=== PATIENT | female | born 1975 | race Two or more races ===

== ENCOUNTER → 2017-05-03 | Outpatient (CLI) | payer OTHER ==
[2017-05-03 09:25] LABS: ABSOLUTE BASOPHILS # (AUTO) 0.1 10^3/uL (0.0-0.2); ABSOLUTE EOSINOPHILS # (AUTO) 0.1 10^3/uL (0.0-0.6); ABSOLUTE LYMPHOCYTES (AUTO) 1.7 10^3/uL (0.5-4.7); ABSOLUTE MONOCYTES (AUTO) 0.4 10^3/uL (0.1-1.4); ABSOLUTE NEUT (AUTO) 3.6 10^3/uL (1.7-8.2); BASOPHILS % (AUTO) 0.9 % (0-2); EOSINOPHILS % (AUTO) 1.2 % (0-6); HEMATOCRIT 38.4 % (36.0-47.0); HEMOGLOBIN 13.3 g/dL (12.0-15.5); HGB HCT DIFFERENCE 1.5; LYMPHOCYTES % (AUTO) 29.6 % (13-45); MEAN CORPUSCULAR HEMOGLOBIN 31.7 pg (27.0-33.4); MEAN CORPUSCULAR HGB CONC 34.8 g/dL (32.0-36.0); MEAN CORPUSCULAR VOLUME 91 fl (80-97); MONOCYTES % (AUTO) 6.8 % (3-13); RED BLOOD COUNT 4.21 10^6/uL (3.72-5.28); RED CELL DISTRIBUTION WIDTH 12.8 % (11.5-14.0); SEGMENTED NEUTROPHILS % (AUTO) 61.5 % (42-78); WHITE BLOOD COUNT 5.9 10^3/uL (4.0-10.5)
[2017-05-03 09:42] LABS: ALANINE AMINOTRANSFERASE 28 U/L (9-52); ALBUMIN 4.3 g/dL (3.5-5.0); ALKALINE PHOSPHATASE 55 U/L (38-126); ANION GAP 13 (5-19); ASPARTATE AMINO TRANSFERASE 18 U/L (14-36); BILIRUBIN,DIRECT 0.3 mg/dL (0.0-0.4); BILIRUBIN,TOTAL 0.5 mg/dL (0.2-1.3); BLOOD UREA NITROGEN 7 mg/dL (7-20); CALCIUM 9.8 mg/dL (8.4-10.2); CARBON DIOXIDE 29 mmol/L (22-30); CHLORIDE 101 mmol/L (98-107); CHOLESTEROL 209.27 mg/dL (0-200); Direct HDL 59 mg/dL (>40); GLUCOSE 93 mg/dL (75-110); POTASSIUM 3.8 mmol/L (3.6-5.0); SODIUM 142.5 mmol/L (137-145); TOTAL PROTEIN 7.3 g/dL (6.3-8.2); TRIGLYCERIDES 155 mg/dL (<150)
[2017-05-03 09:53] LABS: DIRECT LDL 128 mg/dL (<100)
== END ==
LOC: CCC 08:51
DX: Z13.1 Encounter for screening for diabetes mellitus (principal); R20.2 Paresthesia of skin
CPT/HCPCS: 36415; 80053; 80061; 82306; 83036; 84443; 85025

== ENCOUNTER 2017-05-09 19:35 | Emergency (ER) | payer SELFPAY ==
[2017-05-09 20:02] VITALS: BP 132/99
[2017-05-09] MEDS ORDERED: CYCLOBENZAPRINE HCL 10 MG TABLET PO ONE (21:10)
[2017-05-09] MEDS ORDERED: LIDOCAINE 5% (700 MG) TRANSDERMAL ADH..PATCH TP ONE (21:10)
--- NOTE | 2017-05-09 21:12 | ER Document Report ---
HPI - HPI Patient complains to provider of: Left upper back tenderness Onset: This morning Onset/Duration: Gradual Quality of pain: Achy Pain Level: 4 Context: Patient states that she woke up today with left lateral neck pain and left upper back tenderness. Patient denies any injuries. Patient is right-hand dominant. 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 She denies any cough, cold symptoms, chest pain or difficulty breathing. Patient additionally states that she was seen recently and treated for a stye. Patient states that the eyelid swelling has started to improve and that she is continuing to use her antibiotics as prescribed Associated Symptoms: Other - Left upper back. denies: Fever, Headache Exacerbated by: Movement Relieved by: Denies Similar symptoms previously: No Recently seen / treated by doctor: Yes - ROS ROS below otherwise negative: Yes Systems Reviewed and Negative: Yes All other systems reviewed and negative - EENT EENT: REPORTS: Eye problems - CARDIOVASCULAR Cardiovascular: DENIES: Chest pain - REPRODUCTIVE Reproductive: DENIES: : - MUSCULOSKELETAL Musculoskeletal: REPORTS: Back Pain, Neck Pain - DERM Skin Color: Normal Skin Problems: None Past Medical History - General Information source: Patient - Social History Smoking Status: Never Smoker Frequency of alcohol use: None Drug Abuse: None Occupation: housekeeping Lives with: Family, Spouse/Significant other Family History: CAD - Dad, COPD - Mom, CVA - Dad, DM - Dad, Other - [place], dad at age 47 Patient has suicidal ideation: No Patient has homicidal ideation: No - Past Medical History Cardiac Medical History: Reports: Hx Hypertension Neurological Medical History: Reports: Hx Migraine Renal/ Medical History: Denies: Hx Peritoneal Dialysis Past Surgical History: Reports: Hx Cholecystectomy, Hx Gynecologic Surgery, Hx Orthopedic Surgery - BACK SURGERY, Hx Tubal Ligation - Immunizations Immunizations up to date: Yes Hx Diphtheria, Pertussis, Tetanus Vaccination: Yes Vertical Provider Document - CONSTITUTIONAL Agree With Documented VS: Yes Exam Limitations: No Limitations General Appearance: WD/WN, No Apparent Distress - INFECTION CONTROL TRAVEL OUTSIDE OF THE [place] IN LAST 30 DAYS: No - HEENT HEENT: Atraumatic, Normocephalic Notes: Resolving stye to lateral aspect of left upper eyelid - NECK Neck: Normal Inspection, Supple - RESPIRATORY Respiratory: Breath Sounds Normal, No Respiratory Distress O2 Sat by Pulse Oximetry: 98 - CARDIOVASCULAR Cardiovascular: Regular Rate, Regular Rhythm Pulses: Normal: Radial - BACK Back: Abnormal Inspection - Left trapezius muscle tenderness with spasm - MUSCULOSKELETAL/EXTREMETIES Musculoskeletal/Extremeties: FINESSE, FROM Notes: Normal strength and muscle tone to bilateral upper extremities - NEURO Level of Consciousness: Awake, Alert, Appropriate Motor/Sensory: No Motor Deficit, No Sensory Deficit - DERM Integumentary: Warm, Dry, No Rash Course - Vital Signs Vital signs: Temp Pulse Resp BP Pulse Ox 98.7 F 78 16 132/99 H 98 05/09/17 19:59 05/09/17 19:59 05/09/17 19:59 05/09/17 19:59 05/09/17 19:59 Discharge - Discharge Clinical Impression: Trapezius muscle spasm Stye Qualifiers: Laterality: left Eyelid: upper Qualified Code(s): H00.014 - Hordeolum externum left upper eyelid Condition: Stable Disposition: HOME, SELF-CARE Instructions: Muscle Relaxers ([facility]), Muscle Strain ([facility]), Sty ([facility]), Warm Packs ([facility]) Additional Instructions: Return immediately for any new or worsening symptoms Followup with your primary care provider, call tomorrow to make a followup appointment Prescriptions: Cyclobenzaprine HCl [Flexeril 10 Mg Tablet] 10 mg PO TID #15 tablet Forms: Return to Work Referrals: [facility] [Provider Group] - Follow up as needed [facility] [Provider Group] - Follow up as needed
== END 2017-05-09 21:31 | disposition home or self-care (01) ==
LOC: ER 19:35
DX: H00.014 Hordeolum externum left upper eyelid (principal); M62.838 Other muscle spasm; M54.6 Pain in thoracic spine; M54.2 Cervicalgia; I10 Essential (primary) hypertension; Z90.49 Acquired absence of other specified parts of digestive tract; Z98.51 Tubal ligation status
CPT/HCPCS: 99283

== ENCOUNTER 2017-05-24 11:21 | Emergency (ER) | payer SELFPAY ==
[2017-05-24] MEDS ORDERED: IBUPROFEN 600 MG TABLET PO ONE (12:28)
--- NOTE | 2017-05-24 13:19 | RADIOLOGY REPORT (SQ) ---
EXAM DESCRIPTION: CHEST PA/LAT COMPLETED DATE/TIME: 05/24/2017 1:08 pm REASON FOR STUDY: cough COMPARISON: 05/11/2017. EXAM PARAMETERS: NUMBER OF VIEWS: two views TECHNIQUE: Digital Frontal and Lateral radiographic views of the chest acquired. RADIATION DOSE: NA LIMITATIONS: none FINDINGS: LUNGS AND PLEURA: No opacities, masses or pneumothorax. No pleural effusion. MEDIASTINUM AND HILAR STRUCTURES: No masses or contour abnormalities. HEART AND VASCULAR STRUCTURES: Heart normal size. No evidence for failure. BONES: No acute findings. HARDWARE: Clips in the upper abdomen. OTHER: No other significant finding. IMPRESSION: NO SIGNIFICANT RADIOGRAPHIC FINDING IN THE CHEST. TECHNICAL DOCUMENTATION: JOB ID: [id number] [employer]- All Rights Reserved
[2017-05-24] MEDS ORDERED: BUTALB/ACETAMINOPHEN/CAFFEINE 1 TAB EACH PO ONE (14:14)
--- NOTE | 2017-05-24 14:19 | ER Document Report ---
ED General - General Chief Complaint: Sinus Pain Stated Complaint: HEADACHE Time Seen by Provider: 05/24/17 12:56 Notes: 41 yo female c/o sinus pressure and pain, headache, cough, sore throat x 1 week TRAVEL OUTSIDE OF THE [place]. IN LAST 30 DAYS: No - HPI Onset: Last week Onset/Duration: Gradual, Persistent Associated symptoms: Body/muscle aches, Nonproductive cough, Headache, Sore throat. denies: Fever, Nausea Exacerbated by: Other - leaning forward Relieved by: Denies - Related Data Allergies/Adverse Reactions: erythromycin base [Erythromycin Base] Allergy (Intermediate, Verified 05/24/17 11:23) Past Medical History - General Information source: Patient - Social History Smoking Status: Never Smoker Chew tobacco use (# tins/day): No Frequency of alcohol use: None Drug Abuse: None Family History: CAD - Dad, COPD - Mom, CVA - Dad, DM - Dad, Other - [place], dad at age 47 Patient has suicidal ideation: No Patient has homicidal ideation: No - Past Medical History Cardiac Medical History: Reports: Hx Hypertension Neurological Medical History: Reports: Hx Migraine Renal/ Medical History: Denies: Hx Peritoneal Dialysis Past Surgical History: Reports: Hx Cholecystectomy, Hx Gynecologic Surgery, Hx Orthopedic Surgery - BACK SURGERY, Hx Tubal Ligation - Immunizations Immunizations up to date: Yes Hx Diphtheria, Pertussis, Tetanus Vaccination: Yes Review of Systems - Review of Systems Constitutional: No symptoms reported EENT: See HPI Cardiovascular: No symptoms reported Respiratory: No symptoms reported Gastrointestinal: No symptoms reported Genitourinary: No symptoms reported Female Genitourinary: No symptoms reported Musculoskeletal: No symptoms reported Skin: No symptoms reported Hematologic/Lymphatic: No symptoms reported Neurological/Psychological: No symptoms reported Physical Exam - Vital signs Vitals: Temp Pulse Resp BP Pulse Ox 99.0 F 96 14 138/98 H 98 05/24/17 11:23 05/24/17 11:23 05/24/17 11:23 05/24/17 11:23 05/24/17 11:23 Interpretation: Normal - General General appearance: Appears well, Alert - HEENT Head: Normocephalic, Tenderness - + frontal and maxillary sinus tap tender Eyes: Normal Conjunctiva: Normal Pupils: PERRL Tympanic membrane: Normal Sinus: Tenderness Mucous membranes: Normal, Moist Pharynx: Erythema. No: Exudate Neck: Normal, Supple - Respiratory Respiratory status: No respiratory distress Chest status: Nontender Breath sounds: Normal Chest palpation: Normal - Cardiovascular Rhythm: Regular Heart sounds: Normal auscultation Murmur: No - Abdominal Inspection: Normal Distension: No distension Bowel sounds: Normal Tenderness: Nontender Organomegaly: No organomegaly - Back Back: Normal, Nontender - Extremities General upper extremity: Normal inspection, Nontender, Normal color, Normal ROM , Normal temperature General lower extremity: Normal inspection, Nontender, Normal color, Normal ROM , Normal temperature, Normal weight bearing. No: Brandyn's sign - Neurological Neuro grossly intact: Yes Cognition: Normal Orientation: AAOx4 Ka[place] Coma Scale Eye Opening: Spontaneous [place] Coma Scale Verbal: Oriented [place] Coma Scale Motor: Obeys Commands Kailee Coma Scale Total: 15 Speech: Normal Motor strength normal: LUE, RUE, LLE, RLE Sensory: Normal - Psychological Associated symptoms: Normal affect, Normal mood - Skin Skin Temperature: Warm Skin Moisture: Dry Skin Color: Normal Course - Re-evaluation Re-evalutation: 05/24/17 14:21 H&P c/w acute sinusitis. I estimate there is low risk for acute glaucome, temporal ateritis, meningitis, intracraial hemorhage or sroke. I conseder discharge home reasonable. I will treat with round of oral antibiotics. pt instructed to f/u with primary care if symptoms persist. pt agreeable with plan and stable for discharge - Vital Signs Vital signs: Temp Pulse Resp BP Pulse Ox 99.0 F 96 14 138/98 H 98 05/24/17 11:23 05/24/17 11:23 05/24/17 11:23 05/24/17 11:23 05/24/17 11:23 Discharge - Discharge Clinical Impression: Acute sinusitis Qualifiers: Sinusitis location: unspecified location Recurrence: non-recurrent Qualified Code(s): J01.90 - Acute sinusitis, unspecified Condition: Stable Disposition: HOME, SELF-CARE Instructions: Sinusitis ([facility]), Antibiotic Therapy ([facility]), Steroid Medication Additional Instructions: You have a sinus infection Please take antibiotics and steroids as prescribed I recommend Mucinex D in addition to prescribed meds push fluids follow up with primary care if symptoms persist or worsen Prescriptions: Amox Tr/Potassium Clavulanate [Augmentin 875-125 Tablet] 1 tab PO BID 10 Days tablet Prednisone [Deltasone 20 mg Tablet] 1 tab PO BID 5 Days #8 tablet Forms: Return to Work
[2017-05-24 14:41] VITALS: BP 125/89
== END 2017-05-24 14:40 | disposition home or self-care (01) ==
LOC: ER 11:21
DX: J01.90 Acute sinusitis, unspecified (principal); R51 Headache; R05 Cough; J02.9 Acute pharyngitis, unspecified
CPT/HCPCS: 99283; 87804; 71020; J3490

== ENCOUNTER 2017-06-09 11:44 | Emergency (ER) | payer SELFPAY ==
--- NOTE | 2017-06-09 13:12 | ER Document Report ---
ED Respiratory Problem - General Mode of Arrival: Ambulatory Information source: Patient TRAVEL OUTSIDE OF THE [place] IN LAST 30 DAYS: No - HPI Patient complains to provider of: Cough Onset: Other - 4 days ago Associated symptoms: Other - see notes above <CAROLYN SOLIS - Last Filed: 06/09/17 15:30> <KAL FENG - Last Filed: 06/09/17 20:55> - General Chief Complaint: Cough Stated Complaint: COUGH,RUNNY NOSE,SHOULDER PAIN Time Seen by Provider: 06/09/17 12:43 Notes: 42 year old female with history of hypertension presents to the ED complaining of a cough for the past 4 days which is worsened when laying down. Patient reports sinus congestion, and post-tussive emesis. Patient denies fever or chills. Patient was seen in early may for similar ocmplains and was given Augmentin and Prednisone which appeared to help. Patient reports that she finished her Prendnisone course, but did not finish her Augmentin course. (CAROLYN SOLIS) - Related Data Allergies/Adverse Reactions: erythromycin base [Erythromycin Base] Allergy (Intermediate, Verified 06/09/17 11:46) Home Medications: Current Home Medications Diltiazem HCl [Cardizem Cd 120 mg Capsule] 1 tab PO DAILY 06/09/17 [History] Past Medical History - General Information source: Patient - Social History Smoking Status: Never Smoker Frequency of alcohol use: None Drug Abuse: None Family History: CAD - Dad, COPD - Mom, CVA - Dad, DM - Dad, Other - [place], dad at age 47 Patient has suicidal ideation: No Patient has homicidal ideation: No - Past Medical History Cardiac Medical History: Reports: Hx Hypertension Neurological Medical History: Reports: Hx Migraine Renal/ Medical History: Denies: Hx Peritoneal Dialysis Past Surgical History: Reports: Hx Cholecystectomy, Hx Gynecologic Surgery - surgery for eptopic, Hx Orthopedic Surgery - BACK SURGERY, Hx Tubal Ligation - Immunizations Immunizations up to date: Yes Hx Diphtheria, Pertussis, Tetanus Vaccination: Yes <CAROLYN SOLIS - Last Filed: 06/09/17 15:30> Review of Systems - Review of Systems Constitutional: No symptoms reported. denies: Chills, Fever EENT: See HPI, Nose congestion Cardiovascular: No symptoms reported Respiratory: See HPI, Cough Gastrointestinal: No symptoms reported Genitourinary: No symptoms reported Female Genitourinary: No symptoms reported Musculoskeletal: No symptoms reported Skin: No symptoms reported Hematologic/Lymphatic: No symptoms reported Neurological/Psychological: No symptoms reported -: Yes All other systems reviewed and negative <SOLISCAROLYN - Last Filed: 06/09/17 15:30> Physical Exam - General General appearance: Alert In distress: None - HEENT Head: Normocephalic, Atraumatic Eyes: Normal Extraocular movements intact: Yes Pupils: PERRL - Respiratory Respiratory status: No respiratory distress Breath sounds: Normal - Cardiovascular Rhythm: Regular Heart sounds: Normal auscultation - Abdominal Inspection: Normal - Back Back: Normal - Extremities General upper extremity: Normal inspection, Normal ROM General lower extremity: Normal inspection, Normal ROM, Normal weight bearing - Neurological Neuro grossly intact: Yes Cognition: Normal Orientation: AAOx4 [place] Coma Scale Eye Opening: Spontaneous [place] Coma Scale Verbal: Oriented [place] Coma Scale Motor: Obeys Commands [place] Coma Scale Total: 15 Speech: Normal - Psychological Associated symptoms: Normal affect, Normal mood - Skin Skin Temperature: Warm Skin Moisture: Dry Skin Color: Normal <SOLISCAROLYN - Last Filed: 06/09/17 15:30> - Vital signs Vitals: Temp Pulse Resp BP Pulse Ox 98.7 F 96 17 149/115 H 97 06/09/17 11:50 06/09/17 11:50 06/09/17 11:50 06/09/17 11:50 06/09/17 11:50 Course - Diagnostic Test Radiology reviewed: Image reviewed, Reports reviewed <CAROLYN SOLIS - Last Filed: 06/09/17 15:30> - Diagnostic Test Radiology reviewed: Image reviewed <KAL FENG - Last Filed: 06/09/17 20:55> - Re-evaluation Re-evalutation: 06/09/17 15:27 Patient well-appearing with normal chest x-ray no acute abnormalities we will treat as bronchitis will provide albuterol azelastine and fluticasone with return precuations provided. (KAL FENG) - Vital Signs Vital signs: Temp Pulse Resp BP Pulse Ox 98.7 F 90 17 129/92 H 97 06/09/17 11:50 06/09/17 15:16 06/09/17 11:50 06/09/17 15:16 06/09/17 15:16 - Diagnostic Test Radiology results interpreted by me: 06/09/17 15:18 no acute findings on the x-ray (CAROLYN SOLIS) Discharge <CAROLYN SOLIS - Last Filed: 06/09/17 15:30> <KAL FENG - Last Filed: 06/09/17 20:55> - Discharge Clinical Impression: Bronchitis Condition: Stable Disposition: HOME, SELF-CARE Instructions: Bronchitis ([facility]) Additional Instructions: Follow up with primary care in approximately 1 week and return to the ED for new or worsening symptoms. Scribe Documentation - Scribe Written by Sepideh:: Sepideh Burnham, 06/09/2017 1504 acting as scribe for :: Oniel <CAROLYN SOLIS - Last Filed: 06/09/17 15:30>
--- NOTE | 2017-06-09 13:42 | RADIOLOGY REPORT (SQ) ---
EXAM DESCRIPTION: CHEST PA/LAT COMPLETED DATE/TIME: 06/09/2017 1:33 pm REASON FOR STUDY: cough/congestion COMPARISON: 05/24/2017 EXAM PARAMETERS: NUMBER OF VIEWS: two views TECHNIQUE: Digital Frontal and Lateral radiographic views of the chest acquired. RADIATION DOSE: NA LIMITATIONS: none FINDINGS: LUNGS AND PLEURA: No opacities, masses or pneumothorax. No pleural effusion. MEDIASTINUM AND HILAR STRUCTURES: No masses or contour abnormalities. HEART AND VASCULAR STRUCTURES: Heart normal size. No evidence for failure. BONES: No acute findings. HARDWARE: None in the chest. OTHER: No other significant finding. IMPRESSION: NO SIGNIFICANT RADIOGRAPHIC FINDING IN THE CHEST. TECHNICAL DOCUMENTATION: JOB ID: [id number] [employer]- All Rights Reserved
[2017-06-09 15:16] VITALS: BP 129/92
== END 2017-06-09 15:39 | disposition home or self-care (01) ==
LOC: ER 11:44
DX: J40 Bronchitis, not specified as acute or chronic (principal); I10 Essential (primary) hypertension; Z88.3 Allergy status to other anti-infective agents
CPT/HCPCS: 71020; 99283

== ENCOUNTER 2017-07-29 15:40 | Emergency (ER) | payer SELFPAY ==
[2017-07-29 15:50] VITALS: BP 138/90
[2017-07-29] MEDS ORDERED: KETOROLAC TROMETHAMINE 60 MG/2 ML SDV IM ONE (19:36)
--- NOTE | 2017-07-29 19:36 | ER Document Report ---
ED Respiratory Problem - General Chief Complaint: Cough Stated Complaint: HEADACHE Time Seen by Provider: 07/29/17 18:44 Mode of Arrival: Ambulatory Information source: Patient TRAVEL OUTSIDE OF THE [place] IN LAST 30 DAYS: No - HPI Patient complains to provider of: Cough Onset: Last week Notes: Patient arrives with complaints of cough for the last 6-7 days. She states that she coughed hard a few days ago and when she coughed hard she had a sudden pain in her left upper back. She continues to have that pain but only with deep breath or cough. She denies any shortness of breath. She denies any chest pain. She denies any fever. She had some sinus pressure, but states that this seems to have improved. She denies any nausea, vomiting, diarrhea. She denies any rashes. She denies any recent long trips or recent surgeries, leg pain or leg swelling, history of DVT or PE, cancer, hormones, smoking. She has no other complaints at this moment. She denies any past medical history aside from hypertension. - Related Data Allergies/Adverse Reactions: erythromycin base [Erythromycin Base] Allergy (Intermediate, Verified 06/09/17 11:46) Past Medical History - Social History Smoking Status: Unknown if Ever Smoked Family History: CAD - Dad, COPD - Mom, CVA - Dad, DM - Dad, Other - [place], dad at age 47 - Past Medical History Cardiac Medical History: Reports: Hx Hypertension Neurological Medical History: Reports: Hx Migraine Renal/ Medical History: Denies: Hx Peritoneal Dialysis Past Surgical History: Reports: Hx Cholecystectomy, Hx Gynecologic Surgery - surgery for eptopic, Hx Orthopedic Surgery - BACK SURGERY, Hx Tubal Ligation - Immunizations Immunizations up to date: Yes Hx Diphtheria, Pertussis, Tetanus Vaccination: Yes Review of Systems - Review of Systems -: Yes All other systems reviewed and negative Physical Exam - Vital signs Vitals: Temp Pulse Resp BP Pulse Ox 98.7 F 84 16 138/90 H 98 07/29/17 15:49 07/29/17 15:49 07/29/17 15:49 07/29/17 15:49 07/29/17 15:49 - Notes Notes: GENERAL: alert, cooperative, nontoxic, no distress. HEAD: normocephalic, atraumatic EYES: conjunctiva pink without discharge, no external redness or swelling. EARS: no external swelling, no external redness, no mastoid redness, swelling, tenderness. Ear canals are clear without swelling or drainage. TMs pearly ha , no redness, no bulging, normal landmarks, no perforation. NOSE: atraumatic, no external swelling. clear rhinorrhea noted. MOUTH/THROAT: mucous membranes moist and pink, posterior pharynx without erythema, swelling, exudate. No trismus or drooling. NECK: soft, supple, full range of motion, no meningismus. CHEST: no distress, lungs clear and equal throughout. No wheezing, rales, rhonchi. CARDIAC: regular rate and rhythm, no murmur, normal capillary refill, normal pulses. No peripheral edema noted. BACK: full range of motion, no CVA tenderness. EXTREMITIES: full range of motion of all extremities. No redness, no swelling. NEURO: alert and oriented -3, no focal deficits, full range of motion of all extremities. PYSCH: appropriate mood, affect. Patient is cooperative. SKIN: pink, warm, dry, no rash. Course - Re-evaluation Re-evalutation: 07/29/17 19:35 Patient is PERC rule negative for PE and PE is very unlikely in this patient. 07/29/17 20:17 Patient is nontoxic appearing with stable vitals. The patient had a cough for approximately a week and was coughing hard and since that time developed a sudden pain in her left upper back. Pain is only present with deep breaths or cough. No fevers. No dyspnea. No chest pain. She is a benign exam. Chest x- ray shows no acute abnormality. She is no PE risk factors and PERC rule is negative for PE. The patient likely strained muscles or has pleurisy. She will be discharged home with a prescription for Voltaren. Instructions to follow-up with her doctor if not better in 1 week, sooner for increased pain, fever, difficulty breathing or swallowing, or for any further concerns. The patient's emergency department workup and current diagnosis were explained to the patient and or family. Follow-up instructions were provided. Medications if prescribed were discussed. Instructions for when to return to the emergency department including specific worrisome symptoms were discussed with the patient and/or family. The patient is noted to have elevated blood pressure during today's emergency department visit. The patient was informed of this finding. The patient was instructed that this may be related to pre-hypertension and requires further evaluation with a primary care provider. The patient has no hypertensive symptoms at this time. - Vital Signs Vital signs: Temp Pulse Resp BP Pulse Ox 98.7 F 84 16 138/90 H 98 07/29/17 15:49 07/29/17 15:49 07/29/17 15:49 07/29/17 15:49 07/29/17 15:49 Discharge - Discharge Clinical Impression: Chest wall pain Upper respiratory infection Qualifiers: URI type: unspecified viral URI Qualified Code(s): J06.9 - Acute upper respiratory infection, unspecified Condition: Stable Disposition: HOME, SELF-CARE Instructions: Chest Wall Pain ([facility]), Upper Respiratory Illness ([facility]) Additional Instructions: Take medications as prescribed. Follow-up with your doctor if not better in 1 week, sooner for increased pain, fever, difficulty breathing, persistent vomiting, chest pain, or for any further concerns. Your blood pressure was elevated during today's visit. Have this rechecked with your doctor. Prescriptions: Diclofenac Sodium [Voltaren 50 Mg Tablet.] 50 mg PO BID #20 tablet.dr Forms: Elevated Blood Pressure, Smoking Cessation Education Referrals: [facility] [Provider Group] - Follow up as needed
--- NOTE | 2017-07-29 20:05 | RADIOLOGY REPORT (SQ) ---
EXAM DESCRIPTION: CHEST PA/LAT COMPLETED DATE/TIME: 07/29/2017 7:20 pm REASON FOR STUDY: cough COMPARISON: None. EXAM PARAMETERS: NUMBER OF VIEWS: two views TECHNIQUE: Digital Frontal and Lateral radiographic views of the chest acquired. RADIATION DOSE: NA LIMITATIONS: none FINDINGS: LUNGS AND PLEURA: No opacities, masses or pneumothorax. No pleural effusion. MEDIASTINUM AND HILAR STRUCTURES: No masses or contour abnormalities. HEART AND VASCULAR STRUCTURES: Heart normal size. No evidence for failure. BONES: No acute findings. HARDWARE: Cholecystectomy clips. OTHER: No other significant finding. IMPRESSION: NO SIGNIFICANT RADIOGRAPHIC FINDING IN THE CHEST. TECHNICAL DOCUMENTATION: JOB ID: [id number] [employer]- All Rights Reserved
== END 2017-07-29 20:29 | disposition home or self-care (01) ==
LOC: ER 15:40
DX: J06.9 Acute upper respiratory infection, unspecified (principal); R07.89 Other chest pain; R51 Headache; I10 Essential (primary) hypertension; Z88.3 Allergy status to other anti-infective agents; Z90.49 Acquired absence of other specified parts of digestive tract; Z98.51 Tubal ligation status
CPT/HCPCS: 99283; 96372; 71046; J1885

== ENCOUNTER 2017-08-22 09:43 | Emergency (ER) | payer SELFPAY ==
[2017-08-22] MEDS ORDERED: ASPIRIN 81 MG TABLET, CHEWABLE PO ONE (10:24)
--- NOTE | 2017-08-22 10:27 | ER Document Report ---
ED Medical Screen (RME) - General Chief Complaint: Chest Pain Stated Complaint: CHEST PAIN Time Seen by Provider: 08/22/17 10:19 Notes: RME DISCLOSURE I have seen this patient as part of a Rapid Medical Evaluation and, if applicable, placed any initially appropriate orders. The patient will be seen and fully evaluated, including a full history and physical exam, by a provider ( in Main ED or Fast Track) when a room becomes available. HPI 42-year-old female sent over from her primary care doctor's office for evaluation of the left sided chest pain radiating up to the left side of her neck with shortness of breath ongoing for the past 2 days. The pain is worse with breathing but not with exertion. She denies any falls or traumatic injuries to the chest. She has no prior history of blood clots. She does state that she was born with "kidney problems" but does not specifically know the name of this kidney issue. She denies any previous dialysis needs. EXAM Minimal left infraclavicular tenderness Clear to auscultation bilaterally Regular rate and rhythm TRAVEL OUTSIDE OF THE [place] IN LAST 30 DAYS: No - Related Data Allergies/Adverse Reactions: erythromycin base [Erythromycin Base] Allergy (Intermediate, Verified 08/22/17 09:44) Past Medical History - Social History Frequency of alcohol use: None Drug Abuse: None - Past Medical History Cardiac Medical History: Reports: Hx Hypertension Neurological Medical History: Reports: Hx Migraine Renal/ Medical History: Denies: Hx Peritoneal Dialysis Past Surgical History: Reports: Hx Cholecystectomy, Hx Gynecologic Surgery - surgery for eptopic, Hx Orthopedic Surgery - BACK SURGERY, Hx Tubal Ligation - Immunizations Immunizations up to date: Yes Hx Diphtheria, Pertussis, Tetanus Vaccination: Yes Physical Exam - Vital signs Vitals: Temp Pulse Resp BP Pulse Ox 98.6 F 80 16 128/90 H 98 08/22/17 09:55 08/22/17 09:55 08/22/17 09:55 08/22/17 09:55 08/22/17 09:55 Course - Vital Signs Vital signs: Temp Pulse Resp BP Pulse Ox 98.6 F 80 16 128/90 H 98 08/22/17 09:55 08/22/17 09:55 08/22/17 09:55 08/22/17 09:55 08/22/17 09:55
[2017-08-22] MEDS ORDERED: ASPIRIN 81 MG TABLET, CHEWABLE ONE (10:35)
[2017-08-22 10:49] LABS: ABSOLUTE EOSINOPHILS # (AUTO) 0.1 10^3/uL (0.0-0.6); ABSOLUTE LYMPHOCYTES (AUTO) 1.9 10^3/uL (0.5-4.7); ABSOLUTE MONOCYTES (AUTO) 0.6 10^3/uL (0.1-1.4); ABSOLUTE NEUT (AUTO) 6.5 10^3/uL (1.7-8.2); BASOPHILS % (AUTO) 0.5 % (0-2); EOSINOPHILS % (AUTO) 0.8 % (0-6); HEMATOCRIT 42.9 % (36.0-47.0); HEMOGLOBIN 14.5 g/dL (12.0-15.5); LYMPHOCYTES % (AUTO) 20.8 % (13-45); MEAN CORPUSCULAR HEMOGLOBIN 30.9 pg (27.0-33.4); MEAN CORPUSCULAR HGB CONC 33.7 g/dL (32.0-36.0); MEAN CORPUSCULAR VOLUME 92 fl (80-97); MONOCYTES % (AUTO) 6.9 % (3-13); PLATELET COUNT 308 10^3/uL (150-450); RED BLOOD COUNT 4.68 10^6/uL (3.72-5.28); RED CELL DISTRIBUTION WIDTH 13.5 % (11.5-14.0); TOTAL CELLS COUNTED % (AUTO) 100 %; WHITE BLOOD COUNT 9.2 10^3/uL (4.0-10.5)
--- NOTE | 2017-08-22 11:01 | RADIOLOGY REPORT (SQ) ---
EXAM DESCRIPTION: CHEST PA/LAT COMPLETED DATE/TIME: 08/22/2017 10:45 am REASON FOR STUDY: L sided CP SOB COMPARISON: 07/29/2017 NUMBER OF VIEWS: Two view. TECHNIQUE: Frontal and lateral radiographic views of the chest acquired. LIMITATIONS: None. FINDINGS: LUNGS AND PLEURA: No opacities, masses or pneumothorax. No pleural effusion. MEDIASTINUM AND HILAR STRUCTURES: No masses or contour abnormalities. HEART AND VASCULATURE: Heart normal size. No evidence for failure. BONY STRUCTURES: No acute findings. HARDWARE: None. OTHER: No other significant finding. IMPRESSION: NO SIGNIFICANT RADIOGRAPHIC FINDING IN THE CHEST. TECHNICAL DOCUMENTATION: JOB ID: [id number] [employer]- All Rights Reserved
[2017-08-22 11:10] LABS: ANION GAP 12 (5-19); BLOOD UREA NITROGEN 7 mg/dL (7-20); CALCIUM 10.4 mg/dL (8.4-10.2); CARBON DIOXIDE 29 mmol/L (22-30); CHLORIDE 100 mmol/L (98-107); GLUCOSE 101 mg/dL (75-110); POTASSIUM 3.8 mmol/L (3.6-5.0); SODIUM 140.7 mmol/L (137-145)
[2017-08-22] MEDS ORDERED: LIDOCAINE 5% (700 MG) TRANSDERMAL ADH..PATCH TP ONE (12:49)
[2017-08-22] MEDS ORDERED: DEXAMETHASONE 4 MG TABLET PO ONE (12:49)
--- NOTE | 2017-08-22 13:06 | ER Document Report ---
ED General - General Chief Complaint: Chest Pain Stated Complaint: CHEST PAIN Time Seen by Provider: 08/22/17 10:19 TRAVEL OUTSIDE OF THE [place]. IN LAST 30 DAYS: No - HPI Patient complains to provider of: Left upper chest pain Notes: Patient coming in for evaluation left upper chest pain. Patient localizes the pain around her left collarbone states because of the left side of her neck. Patient denies any fever chills nausea vomiting diarrhea denies any sinus symptoms or illnesses. Patient denies any recent trauma patient does work as cleaning staff. I was notified prior to the patient's arrival by PCP does sitting the patient over for further evaluation of the [facility] patient does have a history of left shoulder pain. States that the pain is not relieving Tylenol Motrin. Upon my evaluation patient resting comfortably. Denies any recent travel denies any shortness of breath. - Related Data Allergies/Adverse Reactions: erythromycin base [Erythromycin Base] Allergy (Intermediate, Verified 08/22/17 09:44) Past Medical History - Social History Smoking Status: Never Smoker Frequency of alcohol use: None Drug Abuse: None Family History: CAD - Dad, COPD - Mom, CVA - Dad, DM - Dad, Other - [place], dad at age 47 Patient has suicidal ideation: No Patient has homicidal ideation: No - Past Medical History Cardiac Medical History: Reports: Hx Hypertension Neurological Medical History: Reports: Hx Migraine Renal/ Medical History: Denies: Hx Peritoneal Dialysis Past Surgical History: Reports: Hx Cholecystectomy, Hx Gynecologic Surgery - surgery for eptopic, Hx Orthopedic Surgery - BACK SURGERY, Hx Tubal Ligation - Immunizations Immunizations up to date: Yes Hx Diphtheria, Pertussis, Tetanus Vaccination: Yes Review of Systems - Review of Systems Constitutional: No symptoms reported EENT: No symptoms reported Cardiovascular: Chest pain - Left upper chest Respiratory: No symptoms reported Gastrointestinal: No symptoms reported Genitourinary: No symptoms reported Female Genitourinary: No symptoms reported Musculoskeletal: No symptoms reported Skin: No symptoms reported Hematologic/Lymphatic: No symptoms reported Neurological/Psychological: No symptoms reported Physical Exam - Vital signs Vitals: Temp Pulse Resp BP Pulse Ox 98.6 F 80 16 128/90 H 98 08/22/17 09:55 08/22/17 09:55 08/22/17 09:55 08/22/17 09:55 08/22/17 09:55 Interpretation: Normal - General General appearance: Appears well, Alert - HEENT Head: Normocephalic, Atraumatic Eyes: Normal Conjunctiva: Normal Cornea: Normal Eyelashes: Normal Pupils: PERRL Ears: Normal External canal: Normal Sinus: Normal Nasal: Normal Mouth/Lips: Normal Neck: Normal - Respiratory Respiratory status: No respiratory distress Chest status: Nontender Breath sounds: Normal Chest palpation: Normal - Cardiovascular Rhythm: Regular Heart sounds: Normal auscultation Murmur: No - Abdominal Inspection: Normal Distension: No distension Bowel sounds: Normal Tenderness: Nontender Organomegaly: No organomegaly - Back Back: Normal, Nontender - Extremities General upper extremity: Normal inspection, Nontender, Normal color, Normal ROM , Normal temperature General lower extremity: Normal inspection, Nontender, Normal color, Normal ROM , Normal temperature, Normal weight bearing. No: Brandyn's sign - Neurological Neuro grossly intact: Yes Cognition: Normal Orientation: AAOx4 [place] Coma Scale Eye Opening: Spontaneous [place] Coma Scale Verbal: Oriented [place] Coma Scale Motor: Obeys Commands [place] Coma Scale Total: 15 Speech: Normal Motor strength normal: LUE, RUE, LLE, RLE Sensory: Normal - Psychological Associated symptoms: Normal affect, Normal mood - Skin Skin Temperature: Warm Skin Moisture: Dry Skin Color: Normal Course - Re-evaluation Re-evalutation: 08/23/17 13:33 The patient has atypical chest pain as the patient's chest pain is not suggestive of pulmonary embolus, cardiac ischemia, aortic dissection, or other serious etiology. Given the extremely low risk of these diagnoses further testing and evaluation for these possibilities does not appear to be indicated at this time. The patient has been instructed to return if the symptoms worsen or change in any way. - Vital Signs Vital signs: Temp Pulse Resp BP Pulse Ox 98.3 F 82 16 126/72 H 99 08/22/17 13:14 08/22/17 13:14 08/22/17 13:14 08/22/17 13:14 08/22/17 13:14 - Laboratory Result Diagrams: 08/22/17 10:30 08/22/17 10:30 Laboratory results interpreted by me: 08/22/17 10:30 Calcium 10.4 H Discharge - Discharge Clinical Impression: Left upper chest wall pain Disposition: HOME, SELF-CARE Instructions: Chest Wall Pain ([facility]), Chest Pain of Unclear Cause ([facility]) Additional Instructions: Your laboratory studies not show any indication that your pain is due to a cardiac cause her chest x-ray also does not show any indication that your pain is due to an infectious cause or pulmonary cause. I do believe that this is more muscle skeletal. I recommend taking Tylenol Motrin for pain she may take Ultram for severe pain. sHe may also apply ice and heat to the area. Return to ER symptoms worsen follow-up with your primary care physician in 3-5 days. Prescriptions: Tramadol HCl [Ultram 50 mg Tablet] 50 mg PO ASDIR PRN #14 tablet PRN Reason: Forms: Return to Work
[2017-08-22 13:15] VITALS: BP 126/72
--- NOTE | 2017-08-23 09:32 | EKG REPORT ---
SEVERITY:- NORMAL ECG - SINUS RHYTHM : Confirmed by: Mateo Francois 23-Aug-2017 09:31:33
== END 2017-08-22 13:10 | disposition home or self-care (01) ==
LOC: ER 09:43
DX: R07.89 Other chest pain (principal); Z88.1 Allergy status to other antibiotic agents; Z82.49 Family history of ischemic heart disease and other diseases of the circulatory system; I10 Essential (primary) hypertension
CPT/HCPCS: 36415; 71046; 80048; 84484; 85025; 93005; 93010; 99285

== ENCOUNTER → 2017-08-29 | Outpatient (CLI) | payer OTHER ==
--- NOTE | 2017-08-29 10:23 | WOMENS IMAGING REPORT ---
EXAM DESCRIPTION: BILAT SCREENING MAMMO W/CAD COMPLETED DATE/TIME: 08/29/2017 9:48 am REASON FOR STUDY: ROUTINE SCREENING; Z12.31 Z12.31 ENCNTR SCREEN MAMMOGRAM FOR MALIGNANT NEOPLASM O F DEISI COMPARISON: 11/18/2015 TECHNIQUE: Standard craniocaudal and mediolateral oblique views of each breast recorded using The Echo System[employer] l acquisition. LIMITATIONS: None. FINDINGS: No masses, calcifications or architectural distortion. No areas of suspicion. Read with the assistance of CAD. .[facility] - R2 Cenova Version 1.3 .[facility] - R2 Cenova Version 1.3 .[facility] - R2 Cenova Version 2.4 .[facility] - R2 Cenova Version 2.4 .[facility] - R2 Anthropologist Physical Version 9.2 IMPRESSION: NORMAL MAMMOGRAM. BIRADS 1. BREAST DENSITY: b. There are scattered areas of fibroglandular density. BIRAD: 1 NEGATIVE RECOMMENDATION: ROUTINE SCREENING COMMENT: The patient has been notified of the results by letter per SA requirements. Additional no tification policies are in place for contacting patient with suspicious or incomplete findings. Quality ID #225: The [employer] recommends an annual screening mammogram for women aged 40 years or over. This facility utilizes a reminder system to ensure that all patients receive reminder letters, and/or direct phone calls for appointments. This includes reminders for routine scr eening mammograms, diagnostic mammograms, or other Breast Imaging Interventions when appropriate. Th is patient will be placed in the appropriate reminder system. The [employer] (ACR) has developed recommendations for screening MRI of the breast s in certain patient populations, to be used in conjunction with mammography. Breast MRI surveillanc e may be appropriate for women with more than 20% lifetime risk of developing breast cancer as deter mined by genetic testing, significant family history of the disease, or history of mantle radiation f or Hodgkins Disease. ACR Practice Guidelines 2008. TECHNICAL DOCUMENTATION: FINDING NUMBER: (1) ASSESSMENT: (1) JOB ID: [id number] [employer]- All Rights Reserved
== END ==
LOC: WI 09:25
DX: Z12.31 Encounter for screening mammogram for malignant neoplasm of breast (principal)
CPT/HCPCS: 77067

== ENCOUNTER 2017-12-30 07:58 | Emergency (ER) | payer SELFPAY ==
[2017-12-30] MEDS ORDERED: LIDOCAINE 2% VISCOUS SOLN 20 ML UDCUP PO ONE (09:02)
[2017-12-30] MEDS ORDERED: DIPHENHYDRAMINE HCL 25 MG/10 ML UDC PO ONE (09:02)
[2017-12-30] MEDS ORDERED: MAG HYDROX/AL HYDROX/SIMETH SUSP 30 ML UDCUP PO ONE (09:02)
[2017-12-30 09:03] LABS: ABSOLUTE BASOPHILS # (AUTO) 0.1 10^3/uL (0.0-0.2); ABSOLUTE EOSINOPHILS # (AUTO) 0.1 10^3/uL (0.0-0.6); ABSOLUTE LYMPHOCYTES (AUTO) 1.8 10^3/uL (0.5-4.7); ABSOLUTE MONOCYTES (AUTO) 0.5 10^3/uL (0.1-1.4); ABSOLUTE NEUT (AUTO) 6.7 10^3/uL (1.7-8.2); BASOPHILS % (AUTO) 0.8 % (0-2); HEMATOCRIT 41.5 % (36.0-47.0); HEMOGLOBIN 14.5 g/dL (12.0-15.5); LYMPHOCYTES % (AUTO) 19.3 % (13-45); MEAN CORPUSCULAR HEMOGLOBIN 31.7 pg (27.0-33.4); MEAN CORPUSCULAR VOLUME 90 fl (80-97); PLATELET COUNT 324 10^3/uL (150-450); RED BLOOD COUNT 4.59 10^6/uL (3.72-5.28); RED CELL DISTRIBUTION WIDTH 13.1 % (11.5-14.0); SEGMENTED NEUTROPHILS % (AUTO) 72.9 % (42-78); TOTAL CELLS COUNTED % (AUTO) 100 %; WHITE BLOOD COUNT 9.1 10^3/uL (4.0-10.5)
--- NOTE | 2017-12-30 09:04 | ER Document Report ---
ED GI/ - General Chief Complaint: Abdominal Pain Stated Complaint: STOMACH PAIN Time Seen by Provider: 12/30/17 08:29 Mode of Arrival: Ambulatory Information source: Patient Notes: Patient is a 42-year-old female who presents to the ER today for epigastric burning pain since 2 days ago after dinner. Patient states that she is taking some Tums which did not help but has not tried anything else for her symptoms. Patient denies any nausea, vomiting, diarrhea, abdominal pain that radiates anywhere else, fevers or chills. She has no history of gastritis or ulcers that she knows of. TRAVEL OUTSIDE OF THE [place] IN LAST 30 DAYS: No - Related Data Allergies/Adverse Reactions: erythromycin base [Erythromycin Base] Allergy (Intermediate, Verified 12/30/17 07:59) Past Medical History - General Information source: Patient - Social History Smoking Status: Never Smoker Family History: CAD - Dad, COPD - Mom, CVA - Dad, DM - Dad, Other - [place], dad at age 47 - Past Medical History Cardiac Medical History: Reports: Hx Hypertension Neurological Medical History: Reports: Hx Migraine Renal/ Medical History: Denies: Hx Peritoneal Dialysis Past Surgical History: Reports: Hx Cholecystectomy, Hx Gynecologic Surgery - surgery for eptopic, Hx Orthopedic Surgery - BACK SURGERY, Hx Tubal Ligation - Immunizations Immunizations up to date: Yes Hx Diphtheria, Pertussis, Tetanus Vaccination: Yes Review of Systems - Review of Systems Constitutional: No symptoms reported EENT: No symptoms reported Cardiovascular: No symptoms reported Respiratory: No symptoms reported Gastrointestinal: See HPI Genitourinary: No symptoms reported Female Genitourinary: No symptoms reported Musculoskeletal: No symptoms reported Skin: No symptoms reported Hematologic/Lymphatic: No symptoms reported Neurological/Psychological: No symptoms reported Physical Exam - Vital signs Vitals: Temp Pulse Resp BP Pulse Ox 98.3 F 77 16 124/92 H 98 12/30/17 08:01 12/30/17 08:01 12/30/17 08:01 12/30/17 08:01 12/30/17 08:01 - Notes Notes: PHYSICAL EXAMINATION: GENERAL: Well-appearing and in no acute distress. HEAD: Atraumatic, normocephalic. EYES: Pupils equal round and reactive to light, extraocular movements intact, sclera anicteric, conjunctiva are normal. ENT: ear canals without erythema or foreign body, TMs pearly medina with good bony landmarks, nares patent, oropharynx clear without exudates. Moist mucous membranes. NECK: Normal range of motion, supple without lymphadenopathy LUNGS: CTAB and equal. No wheezes rales or rhonchi. HEART: Regular rate and rhythm without murmurs ABDOMEN: Soft,Mild epigastric tenderness. No guarding, no rebound BACK: no vertebral tenderness, normal ROM GI/: no CVA tenderness EXTREMITIES: Normal range of motion, no pitting edema. No cyanosis. NEUROLOGICAL: Cranial nerves grossly intact. Normal sensory/motor exams. PSYCH: Normal mood, normal affect. SKIN: Warm, Dry, normal turgor, no rashes or lesions noted Course - Re-evaluation Re-evalutation: 12/30/17 17:52 Lab work is all unremarkable today except for mildly elevated lipase at 700. Patient had complete relief of symptoms with GI cocktail. I will send her home with Carafate and Prilosec and have her follow-up with her primary care provider. Her vital signs are all within normal limits. - Vital Signs Vital signs: Temp Pulse Resp BP Pulse Ox 98.5 F 70 18 133/79 H 100 12/30/17 10:50 12/30/17 10:50 12/30/17 10:50 12/30/17 10:50 12/30/17 10:50 - Laboratory Result Diagrams: 12/30/17 08:46 12/30/17 08:46 Laboratory results interpreted by me: 12/30/17 12/30/17 08:46 08:46 Lipase 704.4 H Urine Blood MODERATE H Discharge - Discharge Clinical Impression: Epigastric pain Condition: Stable Disposition: HOME, SELF-CARE Additional Instructions: Return immediately for any new or worsening symptoms. Follow up with primary care provider, call tomorrow to make followup appointment. Prescriptions: Omeprazole Magnesium [Prilosec Otc] 20 mg PO BID #40 tablet. Sucralfate [Carafate 1 gm Tablet] 1 gm PO ACHS #30 tablet Forms: Return to Work Referrals: [facility] [Primary Care Provider] - Follow up as needed
[2017-12-30 09:08] LABS: APPEARANCE,URINE SLIGHTLY-CLOUDY; BILIRUBIN,URINE NEGATIVE (NEGATIVE); COLOR,URINE YELLOW; GLUCOSE, URINE NEGATIVE (NEGATIVE); KETONES,URINE NEGATIVE (NEGATIVE); LEUKOCYTE ESTERASE,URINE NEGATIVE (NEGATIVE); NITRITE,URINE NEGATIVE (NEGATIVE); PROTEIN,URINE NEGATIVE (NEGATIVE); UROBILINOGEN,URINE NEGATIVE mg/dL (<2.0)
[2017-12-30 09:15] LABS: ALANINE AMINOTRANSFERASE 21 U/L (9-52); ALBUMIN 4.4 g/dL (3.5-5.0); ALKALINE PHOSPHATASE 57 U/L (38-126); ANION GAP 10 (5-19); ASPARTATE AMINO TRANSFERASE 17 U/L (14-36); BILIRUBIN,DIRECT 0.3 mg/dL (0.0-0.4); BILIRUBIN,TOTAL 0.4 mg/dL (0.2-1.3); BLOOD UREA NITROGEN 9 mg/dL (7-20); CALCIUM 9.8 mg/dL (8.4-10.2); CARBON DIOXIDE 30 mmol/L (22-30); CHLORIDE 103 mmol/L (98-107); GLUCOSE 98 mg/dL (75-110); LIPASE 704.4 U/L (23-300); POTASSIUM 3.8 mmol/L (3.6-5.0); SODIUM 142.9 mmol/L (137-145); TOTAL PROTEIN 7.6 g/dL (6.3-8.2)
[2017-12-30 10:57] VITALS: BP 133/79
== END 2017-12-30 10:50 | disposition home or self-care (01) ==
LOC: ER 07:58
DX: R10.13 Epigastric pain (principal); I10 Essential (primary) hypertension; Z88.3 Allergy status to other anti-infective agents; Z90.49 Acquired absence of other specified parts of digestive tract
CPT/HCPCS: 99284; 36415; 83690; 85025; 81025; 80053; 81001; J3490 ×2

== ENCOUNTER 2018-02-08 08:25 | Emergency (ER) | payer SELFPAY ==
[2018-02-08] MEDS ORDERED: ASPIRIN 325 MG TABLET PO ONE (09:22)
--- NOTE | 2018-02-08 09:23 | ER Document Report ---
ED Medical Screen (RME) - General Chief Complaint: Chest Pain Stated Complaint: CHEST PAIN Time Seen by Provider: 02/08/18 09:21 Mode of Arrival: Ambulatory Information source: Patient TRAVEL OUTSIDE OF THE [place] IN LAST 30 DAYS: No - HPI Patient complains to provider of: cp Onset: Yesterday - pt with h/o HTN with c/o sscp starting last pm and continuing into today - Related Data Allergies/Adverse Reactions: erythromycin base [Erythromycin Base] Allergy (Intermediate, Verified 02/08/18 08:26) Past Medical History - Social History Frequency of alcohol use: None Drug Abuse: None - Past Medical History Cardiac Medical History: Reports: Hx Hypertension Neurological Medical History: Reports: Hx Migraine Renal/ Medical History: Denies: Hx Peritoneal Dialysis Past Surgical History: Reports: Hx Cholecystectomy, Hx Gynecologic Surgery - surgery for eptopic, Hx Orthopedic Surgery - BACK SURGERY, Hx Tubal Ligation - Immunizations Immunizations up to date: Yes Hx Diphtheria, Pertussis, Tetanus Vaccination: Yes Physical Exam - Vital signs Vitals: Temp Pulse Resp BP Pulse Ox 98.4 F 80 16 118/78 95 02/08/18 08:30 02/08/18 08:30 02/08/18 08:30 02/08/18 08:30 02/08/18 08:30 Course - Vital Signs Vital signs: Temp Pulse Resp BP Pulse Ox 98.4 F 80 16 118/78 95 02/08/18 08:30 02/08/18 08:30 02/08/18 08:30 02/08/18 08:30 02/08/18 08:30 Doctor's Discharge - Discharge Referrals: [facility] [Primary Care Provider] - Follow up as needed
--- NOTE | 2018-02-08 09:57 | ER Document Report ---
ED Cardiac - General Chief Complaint: Chest Pain Stated Complaint: CHEST PAIN Time Seen by Provider: 02/08/18 09:21 Mode of Arrival: Ambulatory TRAVEL OUTSIDE OF THE [place] IN LAST 30 DAYS: No - HPI Patient complains to provider of: Other - Intermittent chest discomfort since yesterday which she has had in the past never a cardiac etiology. Use of: denies: Alcohol, Amphetamines, Bath salts, Caffeine, Cocaine, Decongestants, Other Was the onset of pain: Unknown Is the pain a: New problem Chest pain location: Pleuritic Quality of pain: Intermittent Chest pain radiation location: None - This 42-year-old female presents for evaluation of intermittent chest pain which began yesterday on occasion which she associates worse after coughing. She has had a runny nose of late and on occasion has had cough is resolved she said she thinks she is having chest pain. She is concerned however and decided to come the emergency room to make sure nothing else was happening. She notes that it is intermittent, it is not associated with nausea diaphoresis exertion or anything else. She denies any diarrhea abdominal pain emesis lightheadedness constipation or change in her symptoms. - Related Data Allergies/Adverse Reactions: erythromycin base [Erythromycin Base] Allergy (Intermediate, Verified 02/08/18 08:26) Past Medical History - General Information source: Patient - Social History Smoking Status: Never Smoker Frequency of alcohol use: None Drug Abuse: None Family History: CAD - Dad, COPD - Mom, CVA - Dad, DM - Dad, Other - [place], dad at age 47 Patient has suicidal ideation: No Patient has homicidal ideation: No - Medical History Medical History: Other - High blood pressure - Past Medical History Cardiac Medical History: Reports: Hx Hypertension Neurological Medical History: Reports: Hx Migraine Renal/ Medical History: Denies: Hx Peritoneal Dialysis Past Surgical History: Reports: Hx Cholecystectomy, Hx Gynecologic Surgery - surgery for eptopic, Hx Orthopedic Surgery - BACK SURGERY, Hx Tubal Ligation - Immunizations Immunizations up to date: Yes Hx Diphtheria, Pertussis, Tetanus Vaccination: Yes Review of Systems - Review of Systems Cardiovascular: See HPI -: Yes All other systems reviewed and negative Physical Exam - Vital signs Vitals: Temp Pulse Resp BP Pulse Ox 98.4 F 80 16 118/78 95 02/08/18 08:30 02/08/18 08:30 02/08/18 08:30 02/08/18 08:30 02/08/18 08:30 - General General appearance: Appears well In distress: None - HEENT Head: Normocephalic Eyes: Normal Conjunctiva: Normal - Respiratory Respiratory status: No respiratory distress Chest status: Nontender Breath sounds: Normal Chest palpation: Normal - Cardiovascular Rhythm: Regular Heart sounds: Normal auscultation Murmur: No Friction rub: No Alan's crunch: No - Abdominal Inspection: Normal Distension: No distension Tenderness: Nontender - Back Back: Normal - Extremities General upper extremity: Normal inspection - Neurological Neuro grossly intact: Yes - Skin Skin Temperature: Warm Skin Moisture: Dry Skin Color: Normal Course - Re-evaluation Re-evalutation: 02/08/18 09:55 This 42-year-old female who presents for evaluation of chest pain Her heart score is 0 for age, 0 for EKG, 2 for risk factors, 0 for history and troponin is pending. This patient has a current URI with some episodes of sneezing coughing, this may be a contributing factor to the discomfort she is felt, her history is unlikely to represent cardiac etiology however will obtain 2 sets of cardiac enzymes. We will keep on monitor emergency department and reassess. Currently she is low risk per the heart score and she is not having any active pain at this time. 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 02/08/18 15:35 - Vital Signs Vital signs: Temp Pulse Resp BP Pulse Ox 98.2 F 80 14 112/69 96 02/08/18 14:01 02/08/18 08:30 02/08/18 14:01 02/08/18 14:01 02/08/18 14:01 - Laboratory Result Diagrams: 02/08/18 09:27 02/08/18 09:27 - Diagnostic Test Radiology reviewed: Image reviewed - No focal opacities no obvious infiltrates no pulmonary congestion - EKG Interpretation by [facility] EKG shows normal: Sinus rhythm - Normal sinus rhythm, 76 bpm, normal axis, no appreciable ST segment changes Unchanged from EKG 08-22-2017 Discharge - Discharge Condition: Stable Disposition: HOME, SELF-CARE Additional Instructions: You were seen today in the emergency room for your chest pain. You had an evaluation including blood tests and x-ray of your chest. You were observed no damage to your heart was measured during this time. It is unclear what is causing your chest pain at this time, call your doctor today for a follow-up appointment. Return for any worsening chest pain shortness of breath lightheadedness dizziness or fevers and chills. Prescriptions: Benzonatate [Tessalon Perle 100 mg Capsule] 100 mg PO Q8HP PRN #40 cap PRN Reason: Forms: Return to Work
--- NOTE | 2018-02-08 09:59 | RADIOLOGY REPORT (SQ) ---
EXAM DESCRIPTION: CHEST 2 VIEWS COMPLETED DATE/TIME: 02/08/2018 9:51 am REASON FOR STUDY: cp COMPARISON: Chest films 08/22/2017, 07/29/2017, 06/09/2017 EXAM PARAMETERS: NUMBER OF VIEWS: two views TECHNIQUE: Digital Frontal and Lateral radiographic views of the chest acquired. RADIATION DOSE: NA LIMITATIONS: none FINDINGS: LUNGS AND PLEURA: No opacities, masses or pneumothorax. No pleural effusion. MEDIASTINUM AND HILAR STRUCTURES: No masses or contour abnormalities. HEART AND VASCULAR STRUCTURES: Heart normal size. No evidence for failure. BONES: No acute findings. HARDWARE: Clips right upper quadrant post cholecystectomy OTHER: No other significant finding. IMPRESSION: NO ACUTE RADIOGRAPHIC FINDING IN THE CHEST. TECHNICAL DOCUMENTATION: JOB ID: [id number] [employer]- All Rights Reserved Reading location - IP/workstation name: [email or web address]
[2018-02-08 10:07] LABS: ABSOLUTE EOSINOPHILS # (AUTO) 0.1 10^3/uL (0.0-0.6); ABSOLUTE LYMPHOCYTES (AUTO) 1.7 10^3/uL (0.5-4.7); ABSOLUTE MONOCYTES (AUTO) 0.4 10^3/uL (0.1-1.4); ABSOLUTE NEUT (AUTO) 3.6 10^3/uL (1.7-8.2); BASOPHILS % (AUTO) 0.8 % (0-2); EOSINOPHILS % (AUTO) 1.5 % (0-6); HEMATOCRIT 41.1 % (36.0-47.0); LYMPHOCYTES % (AUTO) 29.2 % (13-45); MEAN CORPUSCULAR VOLUME 91 fl (80-97); MONOCYTES % (AUTO) 6.3 % (3-13); PLATELET COUNT 324 10^3/uL (150-450); RED BLOOD COUNT 4.51 10^6/uL (3.72-5.28); RED CELL DISTRIBUTION WIDTH 13.4 % (11.5-14.0); SEGMENTED NEUTROPHILS % (AUTO) 62.2 % (42-78); TOTAL CELLS COUNTED % (AUTO) 100 %; WHITE BLOOD COUNT 5.7 10^3/uL (4.0-10.5)
[2018-02-08 10:15] LABS: ALANINE AMINOTRANSFERASE 23 U/L (9-52); ALBUMIN 4.3 g/dL (3.5-5.0); ALKALINE PHOSPHATASE 51 U/L (38-126); ANION GAP 12 (5-19); ASPARTATE AMINO TRANSFERASE 18 U/L (14-36); BILIRUBIN,DIRECT 0.2 mg/dL (0.0-0.4); BILIRUBIN,TOTAL 0.6 mg/dL (0.2-1.3); BLOOD UREA NITROGEN 11 mg/dL (7-20); CALCIUM 9.5 mg/dL (8.4-10.2); CARBON DIOXIDE 24 mmol/L (22-30); CHLORIDE 106 mmol/L (98-107); CREATINE KINASE 79 U/L (30-135); GLUCOSE 94 mg/dL (75-110); POTASSIUM 4.2 mmol/L (3.6-5.0); SODIUM 141.5 mmol/L (137-145); TOTAL PROTEIN 7.5 g/dL (6.3-8.2)
[2018-02-08 10:27] LABS: CREATINE KINASE MB 0.54 ng/mL (<4.55)
[2018-02-08 10:28] LABS: TROPONIN I < 0.012 ng/mL
[2018-02-08 14:14] VITALS: BP 112/69
--- NOTE | 2018-02-08 22:34 | EKG REPORT ---
SEVERITY:- NORMAL ECG - SINUS RHYTHM : Confirmed by: Mateo Francois 08-Feb-2018 22:34:25
== END 2018-02-08 14:26 | disposition home or self-care (01) ==
LOC: ER 08:25
DX: R07.9 Chest pain, unspecified (principal); R05 Cough; J06.9 Acute upper respiratory infection, unspecified; R06.7 Sneezing; I10 Essential (primary) hypertension; Z88.1 Allergy status to other antibiotic agents; Z82.49 Family history of ischemic heart disease and other diseases of the circulatory system
CPT/HCPCS: 36415; 71046; 80053; 82550; 82553; 84484; 85025; 93005; 93010; 99285

== ENCOUNTER 2018-05-02 14:07 | Emergency (ER) | payer SELFPAY ==
[2018-05-02] MEDS ORDERED: DICYCLOMINE HCL 20 MG TABLET PO ONE (14:54)
[2018-05-02 15:22] LABS: ABSOLUTE BASOPHILS # (AUTO) 0.1 10^3/uL (0.0-0.2); ABSOLUTE LYMPHOCYTES (AUTO) 1.7 10^3/uL (0.5-4.7); ABSOLUTE MONOCYTES (AUTO) 0.7 10^3/uL (0.1-1.4); ABSOLUTE NEUT (AUTO) 5.4 10^3/uL (1.7-8.2); BASOPHILS % (AUTO) 0.6 % (0-2); EOSINOPHILS % (AUTO) 0.6 % (0-6); HEMATOCRIT 40.4 % (36.0-47.0); LYMPHOCYTES % (AUTO) 21.6 % (13-45); MEAN CORPUSCULAR HEMOGLOBIN 31.8 pg (27.0-33.4); MEAN CORPUSCULAR HGB CONC 34.8 g/dL (32.0-36.0); MEAN CORPUSCULAR VOLUME 92 fl (80-97); MONOCYTES % (AUTO) 8.4 % (3-13); PLATELET COUNT 315 10^3/uL (150-450); RED BLOOD COUNT 4.41 10^6/uL (3.72-5.28); RED CELL DISTRIBUTION WIDTH 13.5 % (11.5-14.0); SEGMENTED NEUTROPHILS % (AUTO) 68.8 % (42-78); TOTAL CELLS COUNTED % (AUTO) 100 %; WHITE BLOOD COUNT 7.9 10^3/uL (4.0-10.5)
[2018-05-02 15:23] LABS: APPEARANCE,URINE CLOUDY; BILIRUBIN,URINE NEGATIVE (NEGATIVE); COLOR,URINE YELLOW; GLUCOSE, URINE NEGATIVE (NEGATIVE); KETONES,URINE NEGATIVE (NEGATIVE); LEUKOCYTE ESTERASE,URINE LARGE (NEGATIVE); NITRITE,URINE NEGATIVE (NEGATIVE); PROTEIN,URINE NEGATIVE (NEGATIVE); URINE SPECIFIC GRAVITY 1.017; UROBILINOGEN,URINE NEGATIVE mg/dL (<2.0)
[2018-05-02 15:39] LABS: ALANINE AMINOTRANSFERASE 12 U/L (9-52); ALBUMIN 4.4 g/dL (3.5-5.0); ALKALINE PHOSPHATASE 59 U/L (38-126); ANION GAP 14 (5-19); ASPARTATE AMINO TRANSFERASE 17 U/L (14-36); BILIRUBIN,DIRECT 0.1 mg/dL (0.0-0.4); BILIRUBIN,TOTAL 0.4 mg/dL (0.2-1.3); BLOOD UREA NITROGEN 9 mg/dL (7-20); CALCIUM 9.7 mg/dL (8.4-10.2); CARBON DIOXIDE 27 mmol/L (22-30); CHLORIDE 100 mmol/L (98-107); GLUCOSE 98 mg/dL (75-110); LIPASE 133.6 U/L (23-300); POTASSIUM 3.8 mmol/L (3.6-5.0); SODIUM 140.5 mmol/L (137-145); TOTAL PROTEIN 7.5 g/dL (6.3-8.2)
--- NOTE | 2018-05-02 15:54 | RADIOLOGY REPORT (SQ) ---
EXAM DESCRIPTION: ACUTE ABDOMEN SERIES COMPLETED DATE/TIME: 05/02/2018 3:33 pm REASON FOR STUDY: abd pain COMPARISON: Two-view chest 02/08/2018 NUMBER OF VIEWS: Three views. TECHNIQUE: Frontal chest, supine abdomen and upright abdomen radiographic images acquired. LIMITATIONS: None. FINDINGS: CHEST: Lungs clear of infiltrates. Cardiac silhouette size, tahir, bony structures unremar kable. FREE AIR: None. No abnormal gas collections. BOWEL GAS PATTERN: Nonobstructive pattern. No dilated loops or air fluid levels. Moderate stool thro ughout the colon CALCIFICATIONS: No suspicious calcifications. HARDWARE: Clips right upper quadrant post cholecystectomy. Disc space prostheses post fusion at L4-5 SOFT TISSUES: No gross mass or suggestion of organomegaly. BONES: No acute fracture. No worrisome bone lesions. OTHER: No other significant finding. IMPRESSION: NO RADIOGRAPHIC EVIDENCE FOR ACUTE ABDOMINAL DISEASE. TECHNICAL DOCUMENTATION: JOB ID: [id number] [employer]- All Rights Reserved Reading location - IP/workstation name: [email or web address]
[2018-05-02] MEDS ORDERED: NITROFURANTOIN MONOHYD/M-CRYST 100 MG CAPSULE PO ONE (16:03)
--- NOTE | 2018-05-02 16:11 | ER Document Report ---
ED General - General Chief Complaint: Abdominal Pain Stated Complaint: ABDOMINAL PAIN,PAINFUL URINATION Time Seen by Provider: 05/02/18 14:50 TRAVEL OUTSIDE OF THE [place] IN LAST 30 DAYS: No - HPI Patient complains to provider of: Lower abdominal pain dysuria Notes: Patient coming in for lower abdominal pain dysuria ongoing for approximate 3 days. Patient states symptoms worsen therefore came to the ER. Patient states dysuria along with bloating patient states feels like she is full of gas and he is to pass flatulence. Patient otherwise denies any fevers or chills denies any recent antibiotics. Patient states most of her pain left lower quadrant and suprapubic region. - Related Data Allergies/Adverse Reactions: erythromycin base [Erythromycin Base] Allergy (Intermediate, Verified 05/02/18 14:09) Past Medical History - Social History Smoking Status: Never Smoker Chew tobacco use (# tins/day): No Frequency of alcohol use: None Drug Abuse: None Family History: CAD - Dad, COPD - Mom, CVA - Dad, DM - Dad, Other - [place], dad at age 47 Patient has suicidal ideation: No Patient has homicidal ideation: No - Past Medical History Cardiac Medical History: Reports: Hx Hypertension Neurological Medical History: Reports: Hx Migraine Renal/ Medical History: Denies: Hx Peritoneal Dialysis Past Surgical History: Reports: Hx Cholecystectomy, Hx Gynecologic Surgery - surgery for eptopic, Hx Orthopedic Surgery - BACK SURGERY, Hx Tubal Ligation - Immunizations Immunizations up to date: Yes Hx Diphtheria, Pertussis, Tetanus Vaccination: Yes Review of Systems - Review of Systems Constitutional: No symptoms reported EENT: No symptoms reported Cardiovascular: No symptoms reported Respiratory: No symptoms reported Gastrointestinal: Abdominal pain Genitourinary: Dysuria Female Genitourinary: No symptoms reported Musculoskeletal: No symptoms reported Skin: No symptoms reported Hematologic/Lymphatic: No symptoms reported Neurological/Psychological: No symptoms reported -: Yes All other systems reviewed and negative Physical Exam - Vital signs Vitals: Temp Pulse Resp BP Pulse Ox 98.5 F 79 16 136/90 H 100 05/02/18 14:11 05/02/18 14:11 05/02/18 14:11 05/02/18 14:11 05/02/18 14:11 Interpretation: Normal - General General appearance: Appears well, Alert - HEENT Head: Normocephalic, Atraumatic Eyes: Normal Pupils: PERRL - Respiratory Respiratory status: No respiratory distress Chest status: Nontender Breath sounds: Normal Chest palpation: Normal - Cardiovascular Rhythm: Regular Heart sounds: Normal auscultation Murmur: No - Abdominal Inspection: Normal Distension: No distension Bowel sounds: Normal Tenderness: Nontender Organomegaly: No organomegaly - Back Back: Normal, Nontender - Extremities General upper extremity: Normal inspection, Nontender, Normal color, Normal ROM , Normal temperature General lower extremity: Normal inspection, Nontender, Normal color, Normal ROM , Normal temperature, Normal weight bearing. No: Brandyn's sign - Neurological Neuro grossly intact: Yes Cognition: Normal Orientation: AAOx4 Kailee Coma Scale Eye Opening: Spontaneous [place] Coma Scale Verbal: Oriented [place] Coma Scale Motor: Obeys Commands Kailee Coma Scale Total: 15 Speech: Normal Motor strength normal: LUE, RUE, LLE, RLE Sensory: Normal - Psychological Associated symptoms: Normal affect, Normal mood - Skin Skin Temperature: Warm Skin Moisture: Dry Skin Color: Normal Course - Re-evaluation Re-evalutation: 05/02/18 20:57 The patient presents with abdominal pain without signs of peritonitis or other life-threatening or serious etiology. The patient appears stable for discharge and has been instructed to return immediately if the symptoms worsen in any way , or in 8-12hr if not improved for re-evaluation. The patient has been instructed to return if the symptoms worsen or change in any way. Urinalysis consistent with a UTI. Possible etiology for the patient's symptoms will start on antibiotics urine culture sent patient discharged home. - Vital Signs Vital signs: Temp Pulse Resp BP Pulse Ox 98.7 F 72 18 144/98 H 100 05/02/18 16:26 05/02/18 16:26 05/02/18 16:26 05/02/18 16:26 05/02/18 16:26 - Laboratory Result Diagrams: 05/02/18 15:03 05/02/18 15:03 Laboratory results interpreted by me: 05/02/18 15:03 Urine Blood SMALL H Ur Leukocyte Esterase LARGE H Urine Ascorbic Acid 40 H Discharge - Discharge Clinical Impression: Abdominal pain Qualifiers: Abdominal location: unspecified location Qualified Code(s): R10.9 - Unspecified abdominal pain Urinary tract infection Qualifiers: Urinary tract infection type: site unspecified Hematuria presence: without hematuria Qualified Code(s): N39.0 - Urinary tract infection, site not specified Condition: Good Disposition: HOME, SELF-CARE Instructions: Abdominal Pain ([facility]), Nitrofurantoin ([facility]), Urinary Tract Infection ([facility]) Additional Instructions: Your laboratory results and x-ray did not show any significant pathology except for urinary tract infection. We will start you on antibiotic called Macrobid. Would recommend taking Tylenol Motrin for pain control please follow-up with your primary care physician for further evaluation. Please take antibiotics until they are completed. He may also take the Zofran as prescribed for any nausea that she may have. Prescriptions: Ibuprofen [Motrin 600 mg Tablet] 600 mg PO Q8HP PRN #21 tablet PRN Reason: Nitrofurantoin/Nitrofuran Mac [Macrobid 100 mg Capsule] 1 tab PO BID #20 capsule Ondansetron [Zofran Odt] 4 mg PO Q6 PRN #30 tab.rapdis PRN Reason: For Nausea/Vomiting Forms: Return to Work Referrals: [facility] [Primary Care Provider] - Follow up as needed
[2018-05-02 16:28] VITALS: BP 144/98
== END 2018-05-02 16:31 | disposition home or self-care (01) ==
LOC: ER 14:07
DX: N39.0 Urinary tract infection, site not specified (principal); R10.9 Unspecified abdominal pain; R30.9 Painful micturition, unspecified; R10.32 Left lower quadrant pain; I10 Essential (primary) hypertension; R30.0 Dysuria
CPT/HCPCS: 99284; 36415; 87086; 83690; 85025; 87088; 80053; 81001; 87186; 74022; J3490; J8499

== ENCOUNTER → 2018-05-11 | Outpatient (CLI) | payer OTHER ==
--- NOTE | 2018-05-11 11:29 | RADIOLOGY REPORT (SQ) ---
EXAM DESCRIPTION: CERV SP 6 OR MORE COMPLETED DATE/TIME: 05/11/2018 11:10 am REASON FOR STUDY: CERVICALGIA Z00.00 ENCNTR FOR GENERAL ADULT MEDICAL EXAM W/O ABNORMAL FI M54.2 C ERVICALGIA COMPARISON: None. NUMBER OF VIEWS: Seven views. TECHNIQUE: AP, lateral, obliques, flexion, extension, and odontoid radiographic images acquired of t he cervical spine. LIMITATIONS: None. FINDINGS: MINERALIZATION: Normal. ALIGNMENT: Anatomic. FLEXION/EXTENSION: No instability. VERTEBRAE: Vertebral bodies of normal height. DISCS: Posterior osteophytes at C5-C6. Disc height maintained. FORAMINA: No osteophytes or foraminal narrowing. LATERAL AND POSTERIOR ELEMENTS: Facets, lateral masses, and spinous processes without significant fin dings. HARDWARE: None in the spine. SOFT TISSUES: No masses or calcifications. Lung apices clear. OTHER: No other significant finding. IMPRESSION: DEGENERATIVE CHANGES AT C5-C6. NO INSTABILITY ON FLEXION/EXTENSION. TECHNICAL DOCUMENTATION: JOB ID: [id number] [employer]- All Rights Reserved Reading location - IP/workstation name: [email or web address]
[2018-05-11 12:27] LABS: CHOLESTEROL 228.91 mg/dL (0-200); TRIGLYCERIDES 243 mg/dL (<150)
[2018-05-11 12:39] LABS: DIRECT LDL 137 mg/dL (<100)
[2018-05-11 12:44] LABS: VLDL CHOLESTEROL 48.6 mg/dL (10-31)
== END ==
LOC: RAD 10:45
DX: Z00.00 Encounter for general adult medical examination without abnormal findings (principal); M54.2 Cervicalgia; M47.892 Other spondylosis, cervical region
CPT/HCPCS: 36415; 72052; 80061; 83036; 84443

== ENCOUNTER 2018-11-14 14:11 | Emergency (ER) | payer SELFPAY ==
[2018-11-14] MEDS ORDERED: TETRACAINE HCL 0.5% OPH SOLN 4 ML OS ONE (15:54)
--- NOTE | 2018-11-14 16:02 | ER Document Report ---
ED Eye Complaint - General Chief Complaint: Drainage from Eye Stated Complaint: LEFT EYE PAIN, REDNESS,DRAINAGE Time Seen by Provider: 11/14/18 15:47 Primary Care Provider: MEGAN BASILIO DO [ACTIVE STAFF] - Follow up tomorrow Mode of Arrival: Ambulatory Information source: Patient Notes: Patient states she was walking yesterday afternoon and had a sudden onset of pain behind her left eye. Patient states that she does not wear contact lenses or glasses. Patient denies any trauma or foreign body to the eye. Patient states that today she noticed her eye was red. Patient complains of pain with movement of her eye and has had tearing to the left eye. TRAVEL OUTSIDE OF THE [place] IN LAST 30 DAYS: No - HPI Onset: Yesterday Eye location: Left Quality of pain: Achy Pain Level: 2 Contact lenses worn: No Associated symptoms: Pain, Redness - Related Data Allergies/Adverse Reactions: erythromycin base [Erythromycin Base] Allergy (Intermediate, Verified 11/14/18 14:12) Past Medical History - General Information source: Patient - Social History Smoking Status: Never Smoker Frequency of alcohol use: None Drug Abuse: None Occupation: None Family History: CAD - Dad, COPD - Mom, CVA - Dad, DM - Dad, Other - [place], dad at age 47 Patient has suicidal ideation: No Patient has homicidal ideation: No - Past Medical History Cardiac Medical History: Reports: Hx Hypertension Neurological Medical History: Reports: Hx Migraine Renal/ Medical History: Denies: Hx Peritoneal Dialysis Past Surgical History: Reports: Hx Cholecystectomy, Hx Gynecologic Surgery - surgery for eptopic, Hx Orthopedic Surgery - BACK SURGERY, Hx Tubal Ligation - Immunizations Immunizations up to date: Yes Hx Diphtheria, Pertussis, Tetanus Vaccination: Yes Review of Systems - Review of Systems Constitutional: No symptoms reported. denies: Fever EENT: Eye pain, Tearing. denies: Blurred vision, Double vision Cardiovascular: No symptoms reported. denies: Dizziness Respiratory: No symptoms reported. denies: Cough Gastrointestinal: No symptoms reported. denies: Nausea, Vomiting Genitourinary: No symptoms reported Female Genitourinary: No symptoms reported Musculoskeletal: No symptoms reported. denies: Neck pain Skin: No symptoms reported Hematologic/Lymphatic: No symptoms reported Neurological/Psychological: No symptoms reported. denies: Headaches Physical Exam - Vital signs Vitals: Temp Pulse Resp BP Pulse Ox 98.3 F 78 18 133/89 H 100 11/14/18 14:30 11/14/18 14:30 11/14/18 14:30 11/14/18 14:30 11/14/18 14:30 - General General appearance: Appears well, Alert In distress: None - HEENT Head: Normocephalic, Atraumatic Eyes: Tears - left eye. No: Pale conjunctiva, Periorbital ecchymosis, Periorbital edema Conjunctiva: Injected. No: Purulent discharge Extraocular movements intact: Yes Eyelashes: Normal Pupils: PERRL Nasal: Normal Mouth/Lips: Other - Respiratory Respiratory status: No respiratory distress Chest status: Nontender - Cardiovascular Rhythm: Regular Heart sounds: S1 appreciated, S2 appreciated - Extremities General upper extremity: Normal inspection General lower extremity: Normal inspection - Neurological Neuro grossly intact: Yes Cognition: Normal Kailee Coma Scale Eye Opening: Spontaneous [place] Coma Scale Verbal: Oriented [place] Coma Scale Motor: Obeys Commands [place] Coma Scale Total: 15 - Psychological Associated symptoms: Normal affect, Normal mood - Skin Skin Temperature: Warm Skin Moisture: Dry Skin Color: Normal Course - Re-evaluation Re-evalutation: 11/14/18 16:[address] Llamas, Dr. Llamas to bedside for examination. Agrees with plan for consultation with ophthalmology. Recommends speaking with radiology f or imaging recommendations. Consulted with radiologist who states that CTA with makah of Rose is not a sensitive test for small vessel retinal problems. He advises CT imaging with contrast if I am concerned about CVA or TIA, otherwise would recommend just a noncontrast CT if imaging is desired. 11/14/18 16:50 Consulted with door to door selling distributor, Dr. Basilio, regarding patient presentation and exam findings. Recommends giving patient Acular 4 times daily and having patient use artificial tears in between dosing of the Acular. Advises having patient call their office at 8 AM tomorrow morning to get an appointment to be seen tomorrow for further evaluation. Does not recommend any diagnostic imaging at this time and states that if they determine its necessary they can order this test tomorrow. - Vital Signs Vital signs: Temp Pulse Resp BP Pulse Ox 97.7 F 74 14 126/86 H 98 11/14/18 17:07 11/14/18 17:07 11/14/18 17:07 11/14/18 17:07 11/14/18 17:07 Discharge - Discharge Clinical Impression: Left eye pain Condition: Stable Disposition: HOME, SELF-CARE Instructions: Ketorolac Tromethamine Eye Drops ([facility]), Eyedrop Use ([facility]) Additional Instructions: Return immediately for any new or worsening symptoms Followup with the door to door selling distributor tomorrow morning. Call their office at 8 AM and let them know that Dr. Arnold, would like you to be seen in the office tomorrow. They will give you an appointment time to be seen. Use [id number] artificial tears in between dosing of the ketorolac prescription eyedrops. Prescriptions: Ketorolac Tromethamine [Acular] 1 drop OS QID #5 ml Referrals: MEGAN BASILIO DO [ACTIVE STAFF] - Follow up tomorrow
[2018-11-14 17:09] VITALS: BP 126/86
== END 2018-11-14 17:07 | disposition home or self-care (01) ==
LOC: ER 14:11
DX: H57.12 Ocular pain, left eye (principal); I10 Essential (primary) hypertension; Z88.1 Allergy status to other antibiotic agents
CPT/HCPCS: 99282; J3490

== ENCOUNTER → 2018-12-05 | Outpatient (CLI) | payer SELFPAY ==
[2018-12-05 10:21] LABS: CHOLESTEROL 236.39 mg/dL (0-200); TRIGLYCERIDES 143 mg/dL (<150)
[2018-12-05 10:32] LABS: DIRECT LDL 145 mg/dL (<100)
== END ==
LOC: CCC 09:51
DX: E78.49 Other hyperlipidemia (principal)
CPT/HCPCS: 36415; 80061

== ENCOUNTER 2019-11-28 19:43 | Emergency (ER) | payer MEDICAID, OTHER ==
--- NOTE | 2019-11-28 20:11 | ER Document Report ---
ED General - General Chief Complaint: Abdominal Pain Stated Complaint: LOWER RIGHT ABDOMINAL PAIN Time Seen by Provider: 11/28/19 20:08 Primary Care Provider: [facility],LUIS DANIEL [NO LOCAL MD] - Follow up as needed Mode of Arrival: Ambulatory Information source: Patient Notes: triage note 11/28/19 20:09 44-year-old female presents to the emergency room for complaints of intermittent, right lower quadrant abdominal pain for the last week that has become progressively worse today. pain is 3/5. Patient reports worse with walking, better at rest. No fevers or chills, no nausea vomiting or diarrhea. No [id number] medications have been tried. Patient has had an ectopic, cholecystectomy and tubal ligation in the past. Able to eat and drink without any issues. Last menstrual cycle was 2 weeks ago. my notes 44 year old [place] descent female who was walking with her 18-year-old son at the mall today and her right flank became quite severe causing her to stumble and nearly fall. Pain radiates to her right inguinal area. Her right inguinal pain has been continuous now for 1 week but increasingly progressively worse. Patient reports her father at age 47 from diabetes and heart attack in his sleep. He was status post CABG. Her mother is 66 and smoked cigarettes 1 pack/day since she was 10 years old and has COPD. The patient reports she has hypertension and takes lisinopril HCTZ and diltiazem on a daily basis. She has a history of sciatica but this pain feels different from her usual sciatica. She denies any history of ovarian cyst or appendicitis. She denies any diarrhea constipation nausea vomiting cough or cold symptoms fever chills skin rash or trauma or abuse or dysuria or hematuria. She denies any history of kidney stones or ovarian cysts. TRAVEL OUTSIDE OF THE [place] IN LAST 30 DAYS: No - Related Data Allergies/Adverse Reactions: erythromycin base [Erythromycin Base] Allergy (Intermediate, Verified 11/14/18 14:12) Past Medical History - General Information source: Patient - Social History Smoking Status: Unknown if Ever Smoked Cigarette use (# per day): No Chew tobacco use (# tins/day): No Smoking Education Provided: No Frequency of alcohol use: None Drug Abuse: None Lives with: Family Family History: CAD - Dad, COPD - Mom, CVA - Dad, DM - Dad, Other - [place], dad at age 47 Patient has suicidal ideation: No Patient has homicidal ideation: No - Past Medical History Cardiac Medical History: Reports: Hx Hypertension Neurological Medical History: Reports: Hx Migraine Renal/ Medical History: Denies: Hx Peritoneal Dialysis Past Surgical History: Reports: Hx Cholecystectomy, Hx Gynecologic Surgery - surgery for eptopic, Hx Orthopedic Surgery - BACK SURGERY, Hx Tubal Ligation - Immunizations Immunizations up to date: Yes Hx Diphtheria, Pertussis, Tetanus Vaccination: Yes Review of Systems - Review of Systems Constitutional: No symptoms reported EENT: No symptoms reported Cardiovascular: No symptoms reported Respiratory: No symptoms reported Gastrointestinal: See HPI, Abdominal pain Genitourinary: No symptoms reported Female Genitourinary: No symptoms reported Musculoskeletal: No symptoms reported Skin: No symptoms reported Hematologic/Lymphatic: No symptoms reported Neurological/Psychological: No symptoms reported Physical Exam - Vital signs Vitals: Temp Pulse Resp BP Pulse Ox 98.5 F 77 16 138/98 H 97 11/28/19 19:47 11/28/19 19:47 11/28/19 19:47 11/28/19 19:47 11/28/19 19:47 Interpretation: Hypertensive - General General appearance: Alert - HEENT Head: Normocephalic, Atraumatic Eyes: Normal Pupils: PERRL Sinus: Normal Nasal: Normal Mouth/Lips: Normal Mucous membranes: Normal Pharynx: Normal - Respiratory Respiratory status: No respiratory distress Chest status: Nontender Breath sounds: Normal Chest palpation: Normal - Cardiovascular Rhythm: Regular Heart sounds: Normal auscultation Murmur: No - Abdominal Inspection: Normal Distension: No distension Bowel sounds: Normal Tenderness: Tender - RLQ on p/p Organomegaly: No organomegaly - + right CVA on p/p - Rectal Stool: Other - deferred - Genitourinary Speculum exam: Other - deferred - Back Back: Tender, CVA tenderness - r sided - Extremities General upper extremity: Normal inspection General lower extremity: Normal inspection, Other - pos psoas and obturator signs - Neurological Neuro grossly intact: Yes Cognition: Normal Orientation: AAOx4 Kailee Coma Scale Eye Opening: Spontaneous Ka[place] Coma Scale Verbal: Oriented Ka[place] Coma Scale Motor: Obeys Commands Kailee Coma Scale Total: 15 Speech: Normal Motor strength normal: LUE, RUE, LLE, RLE Sensory: Normal - Psychological Associated symptoms: Normal affect - Skin Skin Temperature: Warm Skin Moisture: Dry Course - Vital Signs Vital signs: Temp Pulse Resp BP Pulse Ox 98.5 F 77 16 138/98 H 97 11/28/19 20:05 11/28/19 19:47 11/28/19 19:47 11/28/19 19:47 11/28/19 19:47 - Laboratory Result Diagrams: 11/28/19 20:17 11/28/19 20:17 Laboratory results interpreted by me: 11/28/19 20:17 Urine Blood MODERATE H - Diagnostic Test Radiology reviewed: Reports reviewed Critical Care Note - Critical Care Note Total time excluding time spent on procedures (mins): 90 Comments: I advised patient of her CT findings and her lab findings and patient was given IV Decadron 10 with suspicion of musculoskeletal pain. Discharge - Discharge Clinical Impression: RLQ abdominal pain, Acute right flank pain Condition: Good Disposition: HOME, SELF-CARE Instructions: Abdominal Pain ([facility]) Additional Instructions: Follow-up with personal doctor this week return to ER as needed take medicines as directed and avoid bending twisting or lifting until seen by PMD or back specialist. Prescriptions: Chlorzoxazone [Parafon Forte Dsc 500 Mg Tablet] 500 mg PO DAILY PRN #10 tablet PRN Reason: Referrals: [facility] [NO LOCAL MD] - Follow up as needed
--- NOTE | 2019-11-28 20:11 | ER Document Report ---
ED Medical Screen (RME) - General Chief Complaint: Abdominal Pain Stated Complaint: LOWER RIGHT ABDOMINAL PAIN Time Seen by Provider: 11/28/19 20:08 Primary Care Provider: JACY CHERY,LUIS DANIEL [Primary Care Provider] - Follow up as needed TRAVEL OUTSIDE OF THE [place] IN LAST 30 DAYS: No - HPI Notes: 11/28/19 20:09 44-year-old female presents to the emergency room for complaints of intermittent, right lower quadrant abdominal pain for the last week that has become progressively worse today. pain is 3/5. Patient reports worse with walking, better at rest. No fevers or chills, no nausea vomiting or diarrhea. No [id number] medications have been tried. Patient has had an ectopic, cholecystectomy and tubal ligation in the past. Able to eat and drink without any issues. Last menstrual cycle was 2 weeks ago. I have greeted and performed a rapid initial assessment of this patient. A comprehensive ED assessment and evaluation of the patient, analysis of test results and completion of the medical decision making process will be conducted by additional ED providers. PHYSICAL EXAMINATION: GENERAL: Well-appearing, well-nourished and in no acute distress. HEAD: Atraumatic, normocephalic. CV: s1, s2 regular LUNGS: No respiratory distress abd: RLQ abd pain, no cva tenderness appreciated. - Related Data Allergies/Adverse Reactions: erythromycin base [Erythromycin Base] Allergy (Intermediate, Verified 11/14/18 14:12) Past Medical History - Past Medical History Cardiac Medical History: Reports: Hx Hypertension Neurological Medical History: Reports: Hx Migraine Renal/ Medical History: Denies: Hx Peritoneal Dialysis Past Surgical History: Reports: Hx Cholecystectomy, Hx Gynecologic Surgery - surgery for eptopic, Hx Orthopedic Surgery - BACK SURGERY, Hx Tubal Ligation - Immunizations Immunizations up to date: Yes Hx Diphtheria, Pertussis, Tetanus Vaccination: Yes Physical Exam - Vital signs Vitals: Temp Pulse Resp BP Pulse Ox 98.5 F 77 16 138/98 H 97 11/28/19 19:47 11/28/19 19:47 11/28/19 19:47 11/28/19 19:47 11/28/19 19:47 Course - Vital Signs Vital signs: Temp Pulse Resp BP Pulse Ox 98.5 F 77 16 138/98 H 97 11/28/19 19:47 11/28/19 19:47 11/28/19 19:47 11/28/19 19:47 11/28/19 19:47 Doctor's Discharge - Discharge Referrals: [facility] [Primary Care Provider] - Follow up as needed
[2019-11-28 20:32] LABS: ABSOLUTE EOSINOPHILS # (AUTO) 0.1 10^3/uL (0.0-0.6); ABSOLUTE LYMPHOCYTES (AUTO) 2.8 10^3/uL (0.5-4.7); ABSOLUTE MONOCYTES (AUTO) 0.6 10^3/uL (0.1-1.4); ABSOLUTE NEUT (AUTO) 4.9 10^3/uL (1.7-8.2); BASOPHILS % (AUTO) 0.6 % (0-2); EOSINOPHILS % (AUTO) 1.2 % (0-6); HEMATOCRIT 38.1 % (36.0-47.0); HEMOGLOBIN 13.6 g/dL (12.0-15.5); MEAN CORPUSCULAR HEMOGLOBIN 32.1 pg (27.0-33.4); MEAN CORPUSCULAR HGB CONC 35.6 g/dL (32.0-36.0); MEAN CORPUSCULAR VOLUME 90 fl (80-97); MONOCYTES % (AUTO) 7.5 % (3-13); PLATELET COUNT 329 10^3/uL (150-450); RED BLOOD COUNT 4.23 10^6/uL (3.72-5.28); RED CELL DISTRIBUTION WIDTH 13.1 % (11.5-14.0); SEGMENTED NEUTROPHILS % (AUTO) 57.7 % (42-78); TOTAL CELLS COUNTED % (AUTO) 100 %; WHITE BLOOD COUNT 8.5 10^3/uL (4.0-10.5)
[2019-11-28 20:40] LABS: APPEARANCE,URINE SLIGHTLY-CLOUDY; BILIRUBIN,URINE NEGATIVE (NEGATIVE); COLOR,URINE YELLOW; GLUCOSE, URINE NEGATIVE (NEGATIVE); KETONES,URINE NEGATIVE (NEGATIVE); LEUKOCYTE ESTERASE,URINE NEGATIVE (NEGATIVE); NITRITE,URINE NEGATIVE (NEGATIVE); PROTEIN,URINE NEGATIVE (NEGATIVE); URINE SPECIFIC GRAVITY 1.024; UROBILINOGEN,URINE NEGATIVE mg/dL (<2.0)
[2019-11-28 20:51] LABS: ALBUMIN 4.5 g/dL (3.5-5.0); ALKALINE PHOSPHATASE 57 U/L (38-126); ANION GAP 8 (5-19); ASPARTATE AMINO TRANSFERASE 19 U/L (14-36); BILIRUBIN,TOTAL 0.2 mg/dL (0.2-1.3); BLOOD UREA NITROGEN 11 mg/dL (7-20); CALCIUM 9.7 mg/dL (8.4-10.2); CARBON DIOXIDE 30 mmol/L (22-30); CHLORIDE 99 mmol/L (98-107); GLUCOSE 95 mg/dL (75-110); POTASSIUM 3.8 mmol/L (3.6-5.0); TOTAL PROTEIN 7.5 g/dL (6.3-8.2)
--- NOTE | 2019-11-28 22:17 | RADIOLOGY REPORT (SQ) ---
CLINICAL INDICATION: RLQ abd pain intermittent x 1 week, worse today. . TECHNIQUE: Contrast enhanced spiral axial CT imaging was obtained of the abdomen and pelvis with multiplanar reconstructions. This exam was performed according to our departmental dose-optimization program, which includes automated exposure control, adjustment of the mA and/or kV according to patient size and/or use of iterative reconstruction techniques. Additional delayed phase imaging COMPARISON: None. CORRELATION: None. FINDINGS: Abdomen: The lung bases are grossly clear. The heart is of normal size. No evidence of pleural or pericardial fluid. The liver is of normal size contour and attenuation. The gallbladder is surgically absent. The pancreas is unremarkable. The spleen is unremarkable. The adrenals are unremarkable. The kidneys appear grossly normal without evidence of urolithiasis or hydronephrosis. There is no evidence of free air. No free fluid. No bulky adenopathy. Abdominal aorta is nonaneurysmal. Pelvis: The bowel is nonobstructed. The bowel is unopacified with oral contrast. Pelvic contents are unremarkable. The appendix is normal. Visualized bones demonstrate remote postsurgical change to the lumbar spine. IMPRESSION: No acute intra-abdominal process. The appendix is normal. The cause of the patient's right lower quadrant pain is not identified on this examination..
[2019-11-28] MEDS ORDERED: DEXAMETHASONE SOD PHOS INJ 10 MG/1 ML VIAL IV ONE (22:26)
[2019-11-28] MEDS ORDERED: KETOROLAC TROMETHAMINE INJ/PF 30 MG/1 ML SDV IV ONE (22:27)
[2019-11-28] MEDS ORDERED: HYDROCODONE/ACETAMINOPHEN 5-325 MG (6 TAB/ER DISP) PO PRN (22:27)
[2019-11-28 23:34] VITALS: BP 157/99
== END 2019-11-28 23:29 | disposition home or self-care (01) ==
LOC: ER 19:43
DX: R10.31 Right lower quadrant pain (principal); R10.9 Unspecified abdominal pain; Z88.1 Allergy status to other antibiotic agents; I10 Essential (primary) hypertension
CPT/HCPCS: 99285; 96374; 96375; 36415; 83690; 85025; 81025; 80053; 81001; 74177; J1885; J1100

== ENCOUNTER 2020-03-03 19:50 | Emergency (ER) | payer OTHER ==
--- NOTE | 2020-03-03 20:30 | ER Document Report ---
ED Medical Screen (RME) - General Chief Complaint: Abdominal Pain Stated Complaint: RIGHT ABDOMINAL PAIN Time Seen by Provider: 03/03/20 20:26 Mode of Arrival: Ambulatory Information source: Patient Notes: 44-year-old female presents to ED for complaint of lower right abdominal pain for about a week that comes and goes. She is also had right lower back pain that is been constant for about 2 months. She states last menstrual period started yesterday and it is been irregular she has had 2 periods this month. She states she does have a past medical history of an ectopic cholecy stectomy back surgery and a bilateral tubal ligation. She states she does not smoke drink or use any illegal drugs. She states she did have some kidney problems at but they have been resolved. She does have a history of high blood pressure. Patient is alert oriented respirations regular nonlabored speaking in full sentences. I have greeted and performed a rapid initial assessment of this patient. A comprehensive ED assessment and evaluation of the patient, analysis of test results and completion of medical decision making process will be conducted by an additional ED providers. TRAVEL OUTSIDE OF THE [place] IN LAST 30 DAYS: No - Related Data Allergies/Adverse Reactions: erythromycin base [Erythromycin Base] Allergy (Intermediate, Verified 03/03/20 20:22) Home Medications: HTN. DILTIAZEM Past Medical History - Social History Frequency of alcohol use: None Drug Abuse: None - Past Medical History Cardiac Medical History: Reports: Hx Hypertension Neurological Medical History: Reports: Hx Migraine Renal/ Medical History: Denies: Hx Peritoneal Dialysis Past Surgical History: Reports: Hx Cholecystectomy, Hx Gynecologic Surgery - surgery for eptopic, Hx Orthopedic Surgery - BACK SURGERY, Hx Tubal Ligation - Immunizations Immunizations up to date: Yes Hx Diphtheria, Pertussis, Tetanus Vaccination: Yes Physical Exam - Vital signs Vitals: Temp Pulse Resp BP Pulse Ox 98.3 F 71 18 124/80 97 03/03/20 19:58 03/03/20 19:58 03/03/20 19:58 03/03/20 19:58 03/03/20 19:58 Course - Vital Signs Vital signs: Temp Pulse Resp BP Pulse Ox 98.3 F 71 18 124/80 97 03/03/20 19:58 03/03/20 19:58 03/03/20 19:58 03/03/20 19:58 03/03/20 19:58
[2020-03-03 22:20] LABS: ABSOLUTE BASOPHILS # (AUTO) 0.1 10^3/uL (0.0-0.2); ABSOLUTE EOSINOPHILS # (AUTO) 0.1 10^3/uL (0.0-0.6); ABSOLUTE LYMPHOCYTES (AUTO) 3.2 10^3/uL (0.5-4.7); ABSOLUTE MONOCYTES (AUTO) 0.7 10^3/uL (0.1-1.4); ABSOLUTE NEUT (AUTO) 3.9 10^3/uL (1.7-8.2); BASOPHILS % (AUTO) 0.7 % (0-2); EOSINOPHILS % (AUTO) 1.8 % (0-6); HEMATOCRIT 44.6 % (36.0-47.0); HEMOGLOBIN 15.2 g/dL (12.0-15.5); LYMPHOCYTES % (AUTO) 39.7 % (13-45); MEAN CORPUSCULAR HEMOGLOBIN 31.3 pg (27.0-33.4); MEAN CORPUSCULAR VOLUME 92 fl (80-97); PLATELET COUNT 377 10^3/uL (150-450); RED BLOOD COUNT 4.84 10^6/uL (3.72-5.28); RED CELL DISTRIBUTION WIDTH 13.4 % (11.5-14.0); SEGMENTED NEUTROPHILS % (AUTO) 48.8 % (42-78); TOTAL CELLS COUNTED % (AUTO) 100 %; WHITE BLOOD COUNT 8.1 10^3/uL (4.0-10.5)
[2020-03-03 22:37] LABS: APPEARANCE,URINE CLEAR; BILIRUBIN,URINE NEGATIVE (NEGATIVE); COLOR,URINE YELLOW; GLUCOSE, URINE NEGATIVE (NEGATIVE); KETONES,URINE NEGATIVE (NEGATIVE); LEUKOCYTE ESTERASE,URINE NEGATIVE (NEGATIVE); NITRITE,URINE NEGATIVE (NEGATIVE); PROTEIN,URINE NEGATIVE (NEGATIVE); URINE SPECIFIC GRAVITY 1.013; UROBILINOGEN,URINE NEGATIVE mg/dL (<2.0)
[2020-03-03 22:45] LABS: ALBUMIN 4.6 g/dL (3.5-5.0); ALKALINE PHOSPHATASE 68 U/L (38-126); ANION GAP 8 (5-19); ASPARTATE AMINO TRANSFERASE 20 U/L (14-36); BILIRUBIN,DIRECT 0.3 mg/dL (0.0-0.4); BILIRUBIN,TOTAL 0.4 mg/dL (0.2-1.3); BLOOD UREA NITROGEN 10 mg/dL (7-20); CALCIUM 9.8 mg/dL (8.4-10.2); CARBON DIOXIDE 31 mmol/L (22-30); CHLORIDE 100 mmol/L (98-107); GLUCOSE 101 mg/dL (75-110); POTASSIUM 3.7 mmol/L (3.6-5.0); TOTAL PROTEIN 7.8 g/dL (6.3-8.2)
[2020-03-04] MEDS ORDERED: METHOCARBAMOL 750 MG TABLET PO ONE (01:48)
--- NOTE | 2020-03-04 01:54 | ER Document Report ---
ED General - General Chief Complaint: Abdominal Pain Stated Complaint: RIGHT ABDOMINAL PAIN Time Seen by Provider: 03/03/20 20:26 Mode of Arrival: Ambulatory TRAVEL OUTSIDE OF THE [place] IN LAST 30 DAYS: No - HPI Notes: Patient is a 44-year-old female who presents to the emergency department for evaluation of pain in her right lower back and her right lower quadrant. She states she has had similar pain in the past, but it started this time on Monday and has gotten worse. She really did not have any pain yesterday. She states the pain is worsened by moving her leg. Nothing seems to make it better. She said no fevers or chills. No nausea or vomiting. Normal appetite. Normal urination, normal bowel movement. She has had some irregularity with her menstruation, has not had any vaginal discharge. - Related Data Allergies/Adverse Reactions: erythromycin base [Erythromycin Base] Allergy (Intermediate, Verified 03/03/20 20:22) Home Medications: Lisinopril, diltiazem Past Medical History - General Information source: Patient - Social History Smoking Status: Never Smoker Frequency of alcohol use: None Drug Abuse: None Family History: CAD, COPD - Mom, CVA - Dad, DM - Dad, Other - [place], dad at age 47 - Past Medical History Cardiac Medical History: Reports: Hx Hypertension Neurological Medical History: Reports: Hx Migraine Renal/ Medical History: Reports: Hx Ectopic . Denies: Hx Peritoneal Dialysis Past Surgical History: Reports: Hx Cholecystectomy, Hx Gynecologic Surgery - surgery for eptopic, Hx Orthopedic Surgery - BACK SURGERY, Hx Tubal Ligation - Immunizations Immunizations up to date: Yes Hx Diphtheria, Pertussis, Tetanus Vaccination: Yes Review of Systems - Review of Systems Constitutional: No symptoms reported EENT: No symptoms reported Cardiovascular: No symptoms reported Respiratory: No symptoms reported Gastrointestinal: See HPI Genitourinary: No symptoms reported Female Genitourinary: See HPI Musculoskeletal: See HPI Skin: No symptoms reported Physical Exam - Vital signs Vitals: Temp Pulse Resp BP Pulse Ox 98.3 F 71 18 124/80 97 03/03/20 19:58 03/03/20 19:58 03/03/20 19:58 03/03/20 19:58 03/03/20 19:58 - Notes Notes: Vital signs reviewed, please refer to chart. Head is normocephalic, atraumatic. Pupils equal round, reactive to light. Neck is supple without meningismus. Heart is regular rate and rhythm. Lungs are clear to auscultation bilaterally. Abdomen is soft, nontender, normoactive bowel sounds throughout. Patient has some tenderness over the right inguinal region, worsened by flexion of the hip. No overlying skin changes. Extremities without cyanosis, clubbing. Posterior calves are nontender. Peripheral pulses are equal. Skin is warm and dry. Patient is awake, alert, neurological exam is nonfocal. Course - Re-evaluation Re-evalutation: 03/04/20 01:50 Patient presents to the emergency department for evaluation. She laboratory investigations as ordered through triage. Her labs are entirely unremarkable. She has no constitutional symptoms. She actually has no abdominal tenderness. Her symptoms are most consistent with a musculoskeletal strain. She was concerned she could have appendicitis. We talked at length about her symptoms are not consistent with that. She also has sciatica on that side, I suspect this is all related. She was given a dose of muscle relaxer here. She was off ered IM Toradol, but states her pain is not significant enough at this time. I will send her home with a prescription for Naprosyn as well as Robaxin, close follow-up with primary care. She is to return to the emergency department with worsening or new concerning symptoms of any sort. - Vital Signs Vital signs: Temp Pulse Resp BP Pulse Ox 98.2 F 64 18 139/94 H 96 03/03/20 23:24 03/03/20 23:24 03/03/20 19:58 03/03/20 23:24 03/03/20 23:24 - Laboratory Result Diagrams: 03/03/20 22:00 03/03/20 22:00 Laboratory results interpreted by me: 03/03/20 03/03/20 22:00 22:00 Carbon Dioxide 31 H Urine Blood SMALL H Discharge - Discharge Clinical Impression: Right inguinal pain Condition: Stable Disposition: HOME, SELF-CARE Instructions: Abdominal Pain ([facility]), Inguinal Strain ([facility]) Additional Instructions: Your pain seems most consistent with musculoskeletal pain. Please take medications as prescribed. Moist heat to the painful area. Follow-up with your primary care provider this week. Return to the emergency department with worsening or new concerning symptoms of any sort.
[2020-03-04 02:17] VITALS: BP 144/96
== END 2020-03-04 02:18 | disposition home or self-care (01) ==
LOC: ER 19:50
DX: R10.31 Right lower quadrant pain (principal); M54.5 Low back pain; Z88.1 Allergy status to other antibiotic agents; I10 Essential (primary) hypertension
CPT/HCPCS: 99283; 36415; 84703; 85025; 80053; 81001; J3490

== ENCOUNTER 2020-05-13 18:34 | Emergency (ER) | payer OTHER ==
--- NOTE | 2020-05-13 19:45 | ER Document Report ---
ED Medical Screen (RME) - General Chief Complaint: Urinary Frequency Stated Complaint: URINARY PAIN Time Seen by Provider: 05/13/20 19:33 Mode of Arrival: Ambulatory Information source: Patient Notes: 44-year-old female presents to ED for complaint of cloudy foul-smelling urine frequent urination with burning with urination. She states she also started her menstrual cycle today. She thinks she might be starting menopause because she had to leave. Last month and now she is having a second 1 this month. She is alert oriented respirations regular nonlabored speaking in full sentences. Constitutional: Negative for fever. HENT: Negative for sore throat. Eyes: Negative for visual changes. Cardiovascular: Negative for chest pain. Respiratory: Negative for shortness of breath. Gastrointestinal: Negative for abdominal pain, vomiting or diarrhea. Genitourinary: Frequent urination, burning with urination, foul-smelling and cloudy urine. She states she started her menstrual cycle again today she is spotting. Musculoskeletal: Negative for back pain. Skin: Negative for rash. Neurological: Negative for headaches, weakness or numbness. 10 point ROS negative except as marked above and in HPI. VITAL SIGNS: Within normal limits. GENERAL: No acute distress, non-toxic appearance. THROAT: Oropharynx is normal. NECK: Normal range of motion, no tenderness, supple, no lymphadenopathy, No adenopathy, no JVD. CHEST: Clear breath sounds bilaterally. No wheezes, rales, or rhonchi. CARDIAC: Regular rate and rhythm. S1 and S2, without murmurs, gallops, or rubs. VASCULAR: No Edema. Peripheral pulses normal and equal in all extremities. ABDOMEN: Normal and soft with no tenderness, no masses or pulsatile masses. GASTROINTESTINAL: Bowel sounds normal GENITOURINARY: Complains of burning frequency urgency with urine NEUROLOGICAL: Alert and oriented x 3. No focal sensory or strength deficits. Speech normal. Follows commands appropriately. PSYCHIATRIC: Normal Affect, judgement and mood. SKIN: Normal appearance with no rashes or lesions. TRAVEL OUTSIDE OF THE [place] IN LAST 30 DAYS: No - HPI Onset: Other - 4 days ago Onset/Duration: Gradual Quality of pain: Burning Severity: Mild Pain Level: 1 Associated Symptoms: Other - Consider urgency burning foul-smelling and cloudy urine Exacerbated by: Other - Urination Relieved by: Denies Similar symptoms previously: Yes Recently seen / treated by doctor: No - Related Data Smoking: Non-smoker Frequency of alcohol use: None Drug Abuse: None Allergies/Adverse Reactions: erythromycin base [Erythromycin Base] Allergy (Intermediate, Verified 05/13/20 19:40) Past Medical History - Past Medical History Cardiac Medical History: Reports: Hx Hypertension Neurological Medical History: Reports: Hx Migraine Renal/ Medical History: Reports: Hx Ectopic . Denies: Hx Peritoneal Dialysis Past Surgical History: Reports: Hx Cholecystectomy, Hx Gynecologic Surgery - surgery for eptopic, Hx Orthopedic Surgery - BACK SURGERY, Hx Tubal Ligation - Immunizations Immunizations up to date: Yes Hx Diphtheria, Pertussis, Tetanus Vaccination: Yes
--- NOTE | 2020-05-13 19:47 | ER Document Report ---
ED GI/ - General Chief Complaint: Urinary Problem Stated Complaint: URINARY PAIN Time Seen by Provider: 05/13/20 19:33 Primary Care Provider: [facility] [Provider Group] - Follow up as needed Mode of Arrival: Ambulatory Notes: 44-year-old female presents to ED for complaint of cloudy foul-smelling urine frequent urination with burning with urination. She states she also started her menstrual cycle today. She thinks she might be starting menopause because she had to leave. Last month and now she is having a second 1 this month. She is alert oriented respirations regular nonlabored speaking in full sentences. Constitutional: Negative for fever. HENT: Negative for sore throat. Eyes: Negative for visual changes. Cardiovascular: Negative for chest pain. Respiratory: Negative for shortness of breath. Gastrointestinal: Negative for abdominal pain, vomiting or diarrhea. Genitourinary: Frequent urination, burning with urination, foul-smelling and cloudy urine. She states she started her menstrual cycle again today she is spotting. Musculoskeletal: Negative for back pain. Skin: Negative for rash. Neurological: Negative for headaches, weakness or numbness. 10 point ROS negative except as marked above and in HPI. VITAL SIGNS: Within normal limits. GENERAL: No acute distress, non-toxic appearance. THROAT: Oropharynx is normal. NECK: Normal range of motion, no tenderness, supple, no lymphadenopathy, No adenopathy, no JVD. CHEST: Clear breath sounds bilaterally. No wheezes, rales, or rhonchi. CARDIAC: Regular rate and rhythm. S1 and S2, without murmurs, gallops, or rubs. VASCULAR: No Edema. Peripheral pulses normal and equal in all extremities. ABDOMEN: Normal and soft with no tenderness, no masses or pulsatile masses. GASTROINTESTINAL: Bowel sounds normal GENITOURINARY: Complains of burning frequency urgency with urine NEUROLOGICAL: Alert and oriented x 3. No focal sensory or strength deficits. Speech normal. Follows commands appropriately. PSYCHIATRIC: Normal Affect, judgement and mood. SKIN: Normal appearance with no rashes or lesions. TRAVEL OUTSIDE OF THE [place] IN LAST 30 DAYS: No - HPI Patient complains to provider of: Dysuria, Other - Frequency urgency burning with urination Onset: Other - 4 days Timing/Duration: Gradual Quality of pain: Burning Severity at maximum: Mild Severity in ED: Mild Pain Level: 1 Vaginal bleeding (Compared to normal period): Spotting LMP: Today Associated symptoms: Urinary hesitancy, Urinary frequency, Other - Burning, just R. Exacerbated by: Other - Urination Relieved by: Denies Similar symptoms previously: Yes Recently seen / treated by doctor: No - Related Data Allergies/Adverse Reactions: erythromycin base [Erythromycin Base] Allergy (Intermediate, Verified 05/13/20 19:40) Home Medications: lisinopril/hctz, b12, diltiazem, allergy pill Past Medical History - General Information source: Patient Last Menstrual Period: current - Social History Smoking Status: Never Smoker Chew tobacco use (# tins/day): No Frequency of alcohol use: None Drug Abuse: None Family History: CAD, COPD - Mom, CVA - Dad, DM - Dad, Other - [place], dad at age 47 Patient has homicidal ideation: No - Past Medical History Cardiac Medical History: Reports: Hx Hypertension Neurological Medical History: Reports: Hx Migraine Renal/ Medical History: Reports: Hx Ectopic . Denies: Hx Peritoneal Dialysis Past Surgical History: Reports: Hx Cholecystectomy, Hx Gynecologic Surgery - surgery for eptopic, Hx Orthopedic Surgery - BACK SURGERY, Hx Tubal Ligation - Immunizations Immunizations up to date: Yes Hx Diphtheria, Pertussis, Tetanus Vaccination: Yes Physical Exam - Vital signs Vitals: Temp Pulse Resp BP Pulse Ox 98.3 F 77 16 119/81 99 05/13/20 19:39 05/13/20 19:39 05/13/20 19:39 05/13/20 19:39 05/13/20 19:39 Course - Re-evaluation Re-evalutation: 05/13/20 22:11 Urine came back positive for UTI. Patient was treated with Macrobid and discharged home with prescription for Macrobid that was transmitted to her pharmacy. Patient verbalized understanding and agreement with treatment plan. Patient was instructed to please follow-up with primary care in the next 7 to 10 days to ensure urine was clearing. - Vital Signs Vital signs: Temp Pulse Resp BP Pulse Ox 98.3 F 75 18 140/95 H 100 05/13/20 19:39 05/13/20 21:05 05/13/20 21:05 05/13/20 21:05 05/13/20 21:05 - Laboratory Laboratory results interpreted by me: 05/13/20 19:25 Urine Blood MODERATE H Ur Leukocyte Esterase SMALL H Urine Ascorbic Acid 20 H Discharge - Discharge Clinical Impression: UTI (urinary tract infection) Qualifiers: Urinary tract infection type: site unspecified Hematuria presence: with hematuria Qualified Code(s): N39.0 - Urinary tract infection, site not specified Condition: Stable Disposition: HOME, SELF-CARE Additional Instructions: URINARY TRACT INFECTION: Your evaluation indicates that you have a urinary tract infection. This is due to germs growing in the bladder. This is a common problem. This infection usually responds quickly to antibiotics. Your antibiotic should be taken exactly as prescribed. Drink plenty of fluids -- three to four quarts a day. Occasionally, a bladder anesthetic will be prescribed to help stop the feeling of urgency until the antibiotic has a chance to clear the infection. This may cause your urine to be dark orange. Certain urine infections require a culture. If the doctor obtained a culture, the results will be back in two days. You should call to see if a change in treatment is needed. A repeat urinalysis after you finish treatment is often recommended. The physician will let you know if further testing is required. Call the doctor if you develop fever, chills, flank pain, inability to urinate, or blood in the urine. NITROFURANTOIN (MACRODANTIN, MACROBID): You have received a prescription for nitrofurantoin (Macrodantin). This antibiotic is used for urinary tract infections. Women who are or nursing should notify the physician before taking this medicine. If you have ever had a problem caused by this medication in the past, be sure the physician is aware of it. Common side effects of this medicine include nausea, vomiting, or decreased appetite. Notify your physician if these side effects become severe. Immediately stop this medicine and call the physician if you develop cough, shortness of breath, chest pain, weakness, jaundice (yellow color of the skin and whites of the eyes), or a skin rash. FOLLOW-UP CARE: If you have been referred to a physician for follow-up care, call the physicians office for an appointment as you were instructed or within the next two days. If you experience worsening or a significant change in your symptoms, notify the physician immediately or return to the Emergency Department at any time for re-evaluation. Prescriptions: Nitrofurantoin Monohyd/M-Cryst [Macrobid 100 mg Capsule] 100 mg PO BID #[id number] Referrals: [facility] [Provider Group] - Follow up as needed
[2020-05-13 20:02] LABS: APPEARANCE,URINE CLEAR; BILIRUBIN,URINE NEGATIVE (NEGATIVE); COLOR,URINE STRAW; GLUCOSE, URINE NEGATIVE (NEGATIVE); KETONES,URINE NEGATIVE (NEGATIVE); LEUKOCYTE ESTERASE,URINE SMALL (NEGATIVE); NITRITE,URINE NEGATIVE (NEGATIVE); PROTEIN,URINE NEGATIVE (NEGATIVE); URINE SPECIFIC GRAVITY 1.014; UROBILINOGEN,URINE NEGATIVE mg/dL (<2.0)
[2020-05-13] MEDS ORDERED: NITROFURANTOIN MONOHYD/M-CRYST 100 MG CAPSULE PO ONE (21:07)
[2020-05-13 21:08] VITALS: BP 140/95
== END 2020-05-13 21:05 | disposition home or self-care (01) ==
LOC: ER 18:34
DX: N39.0 Urinary tract infection, site not specified (principal); I10 Essential (primary) hypertension; Z88.3 Allergy status to other anti-infective agents
CPT/HCPCS: 99283; 87086; 81025; 87088; 81001; 87186; J8499

== ENCOUNTER → 2020-06-01 | Outpatient (CLI) | payer OTHER ==
[2020-06-01 09:33] LABS: ABSOLUTE EOSINOPHILS # (AUTO) 0.1 10^3/uL (0.0-0.6); ABSOLUTE MONOCYTES (AUTO) 0.5 10^3/uL (0.1-1.4); ABSOLUTE NEUT (AUTO) 4.5 10^3/uL (1.7-8.2); BASOPHILS % (AUTO) 0.7 % (0-2); EOSINOPHILS % (AUTO) 1.5 % (0-6); HEMOGLOBIN 13.5 g/dL (12.0-15.5); MEAN CORPUSCULAR HEMOGLOBIN 31.4 pg (27.0-33.4); MEAN CORPUSCULAR HGB CONC 34.5 g/dL (32.0-36.0); MEAN CORPUSCULAR VOLUME 91 fl (80-97); MONOCYTES % (AUTO) 6.7 % (3-13); PLATELET COUNT 362 10^3/uL (150-450); RED BLOOD COUNT 4.28 10^6/uL (3.72-5.28); RED CELL DISTRIBUTION WIDTH 13.4 % (11.5-14.0); SEGMENTED NEUTROPHILS % (AUTO) 63.1 % (42-78); TOTAL CELLS COUNTED % (AUTO) 100 %; WHITE BLOOD COUNT 7.2 10^3/uL (4.0-10.5)
[2020-06-01 09:54] LABS: BLOOD UREA NITROGEN 11 mg/dL (7-20); GLUCOSE 97 mg/dL (75-110)
[2020-06-01 09:55] LABS: ALBUMIN 4.5 g/dL (3.5-5.0); ALKALINE PHOSPHATASE 57 U/L (38-126); ANION GAP 11 (5-19); ASPARTATE AMINO TRANSFERASE 19 U/L (14-36); BILIRUBIN,DIRECT 0.1 mg/dL (0.0-0.4); BILIRUBIN,TOTAL 0.6 mg/dL (0.2-1.3); CARBON DIOXIDE 25 mmol/L (22-30); CHLORIDE 102 mmol/L (98-107); CHOLESTEROL 249.96 mg/dL (0-200); TOTAL PROTEIN 7.6 g/dL (6.3-8.2); TRIGLYCERIDES 159 mg/dL (<150)
[2020-06-01 09:56] LABS: APPEARANCE,URINE CLEAR; BILIRUBIN,URINE NEGATIVE (NEGATIVE); COLOR,URINE YELLOW; GLUCOSE, URINE NEGATIVE (NEGATIVE); KETONES,URINE NEGATIVE (NEGATIVE); LEUKOCYTE ESTERASE,URINE NEGATIVE (NEGATIVE); NITRITE,URINE NEGATIVE (NEGATIVE); PROTEIN,URINE NEGATIVE (NEGATIVE); UROBILINOGEN,URINE NEGATIVE mg/dL (<2.0)
[2020-06-01 10:06] LABS: DIRECT LDL 174 mg/dL (<100)
[2020-06-01 10:50] LABS: VLDL CHOLESTEROL 31.8 mg/dL (10-31)
== END ==
LOC: CCC 08:07
PROVIDERS: ATTEND Internal Medicine
DX: I10 Essential (primary) hypertension (principal)
CPT/HCPCS: 36415; 80053; 80061; 81001; 82306; 82607; 83036; 84443; 85025